=== PATIENT | female | born 1960 | race Caucasian/White ===

== ENCOUNTER 2018-06-03 13:22 | Emergency (ER) | payer OTHER ==
--- NOTE | 2018-06-03 14:02 | ED Physician Documentation ---
PD HPI TRUNK INJURY - Stated complaint Stated Complaint: GLF/RIB PX - Chief complaint Chief Complaint: Trauma Abd - History obtained from History obtained from: Patient, Family - History of Present Illness Location: Left chest Type of injury: Fall Timing - onset: Today Timing - duration: Minutes Timing - details: Abrupt onset, Still present Quality: Pain, Sharp Improved by: Rest, Immobilization Worsened by: Moving, Palpating Associated symtptoms: Feel faint, Syncope. No: Weakness, Numbness, Tingling, Swelling Contributing factors: No: Anticoagulated Where injury occured: Home Similar symptoms before: Diagnosis (syncope related to pain) Recently seen: Not recently seen - Additional information Additional information: Previously well 57-year-old female was in her home today, she was brushing her teeth and she was in her bathroom and she leaned against the commode. The seat on the commode shifted and the patient fell against the bathtub. She struck her left chest wall and has pain specifically on the left chest wall inferiorly and she has heard a click when she breathes periodically. She has had a syncopal episode after the fall and has come to the ED for evaluation. She indicates she has had problem with syncope after injury previously as well. Review of Systems Constitutional: denies: Fever, Chills, Myalgias Eyes: denies: Decreased vision Ears: denies: Ear pain Nose: reports: Congestion Cardiac: reports: Chest pain / pressure. denies: Palpitations, Pedal edema, Calf pain Respiratory: denies: Dyspnea, Cough GI: denies: Abdominal Pain, Abdominal Swelling, Nausea, Vomiting, Constipation, Diarrhea : denies: Dysuria, Frequency PD PAST MEDICAL HISTORY - Present Medications Home Medications: Ambulatory Orders Medication Instructions Recorded Confirmed Hydrocodone/Acetaminophen 1 - 2 each PO Q6H PRN #14 tablet 06/03/18 [Hydrocodon-Acetaminophen 5-325] - Allergies Allergies/Adverse Reactions: Allergies Allergy/AdvReac Type Severity Reaction Status Date / Time No Known Drug Allergies Allergy Verified 06/03/18 13:35 PD ED PE NORMAL - Vitals Vital signs reviewed: Yes (hypotensive ) - General General: Alert and oriented X 3, No acute distress - HEENT HEENT: Atraumatic, PERRL, EOMI - Neck Neck: Supple, no meningeal sign, No bony TTP - Cardiac Cardiac: RRR, No murmur - Respiratory Respiratory: No respiratory distress, Clear bilaterally, Other (There is specific point tenderness to the chest wall inferiorly and laterally. 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, No motor deficit, No sensory deficit, Normal speech Eye Opening: Spontaneous Motor: Obeys Commands Verbal: Oriented GCS Score: 15 - Psych Psych: Normal mood, Normal affect Results - Vitals Vitals: Vital Signs - 24 hr 06/03/18 06/03/18 06/03/18 13:31 13:41 14:09 Temperature 36 C L 36.8 C Heart Rate 63 63 56 L Respiratory 16 16 12 Rate Blood Pressure 77/47 L 82/51 L 91/56 L O2 Saturation 97 95 100 06/03/18 14:43 Temperature Heart Rate 57 L Respiratory 14 Rate Blood Pressure 86/54 L O2 Saturation 99 Oxygen O2 Source Room air - Labs Labs: Laboratory Tests 06/03/18 06/03/18 06/03/18 13:57 13:57 13:57 WBC 12.0 H RBC 4.24 Hgb 13.0 Hct 38.4 MCV 90.4 MCH 30.5 MCHC 33.7 RDW 12.8 Plt Count 219 MPV 8.2 Neut # (Auto) 10.1 H Lymph # (Auto) 1.2 L [place] # (Auto) 0.6 Eos # (Auto) 0.0 Baso # (Auto) 0.1 Absolute Nucleated RBC 0.00 Nucleated RBC % 0.0 Sodium 134 L Potassium 3.8 Chloride 94 L Carbon Dioxide 29 Anion Gap 11.0 BUN 27 H Creatinine 1.0 Estimated GFR (MDRD) 57 L Glucose 141 H Calcium 9.3 Total Bilirubin 0.8 AST 27 ALT 15 Alkaline Phosphatase 58 Troponin I < 0.04 Total Protein 7.6 Albumin 4.2 Globulin 3.4 Albumin/Globulin Ratio 1.2 Lipase 23 - Rads (name of study) ribs and PA chest Radiology: Prelim report reviewed (Impression: Negative chest and rib radiography.), EMP read indepedently, See rad report Procedures - FAST exam (time) 8984 FAST exam: No: Free fluid RUQ, Free fluid LUQ, Free fluid suprapubic, Pericardial effusion PD MEDICAL DECISION MAKING - ED course Complexity details: reviewed results, re-evaluated patient, considered differential, d/w patient, d/w family ED course: 57-year-old female with a fall against a tub and a cracked rib has pain in her left lateral chest and she has a negative FAST exam. She did have hypotension when she arrived to the emergency department and she continues to run pressures under 100. She does state that she usually runs a low blood pressure. She has had a syncopal episode today and she has had this happen to her previously with painful conditions. Departure - Departure Disposition: 01 Home, Self Care Clinical Impression: Chest wall contusion Qualifiers: Encounter type: initial encounter Laterality: left Qualified Code(s): S20.212A - Contusion of left front wall of thorax, initial encounter Condition: Stable Instructions: ED Contusion Vs Minor Fx Rib Follow-Up: [facility] [Provider Group] Prescriptions: Hydrocodone/Acetaminophen [Hydrocodon-Acetaminophen 5-325] 1 - 2 each PO Q6H PRN #14 tablet PRN Reason: pain
[2018-06-03 14:08] LABS: BASOPHILS # (AUTO) 0.1 10^3/uL (0.0-0.1); BASOPHILS % (AUTO) 0.6 %; EOSINOPHILS % (AUTO) 0.3 %; LYMPHOCYTES # (AUTO) 1.2 10^3/uL (1.5-3.5); LYMPHOCYTES % (AUTO) 9.9 %; MEAN CORPUSCULAR HEMOGLOBIN 30.5 pg (27.0-31.0); MEAN CORPUSCULAR HGB CONC 33.7 g/dL (32.0-36.0); MEAN CORPUSCULAR VOLUME 90.4 fL (81.0-99.0); MEAN PLATELET VOLUME 8.2 fL (7.9-10.8); MONOCYTES # (AUTO) 0.6 10^3/uL (0.0-1.0); MONOCYTES % (AUTO) 4.9 %; NEUTROPHILS # (AUTO) 10.1 10^3/uL (1.5-6.6); NEUTROPHILS % (AUTO) 84.3 %; PLT - PLATELET COUNT 219 10^3/uL (130-450); RED BLOOD COUNT 4.24 10^6/uL (4.20-5.40); RED CELL DISTRIBUTION WIDTH 12.8 % (12.0-15.0)
[2018-06-03] MEDS ORDERED: SODIUM CHLORIDE 0.9% 1,000 ML IV ONE (14:13)
[2018-06-03 14:25] LABS: ALBUMIN 4.2 g/dL (3.2-5.5); ALBUMIN/GLOBULIN RATIO 1.2 (1.0-2.2); BILIRUBIN,TOTAL 0.8 mg/dL (0.2-1.0); CALCIUM 9.3 mg/dL (8.5-10.3); TOTAL PROTEIN 7.6 g/dL (6.7-8.2)
[2018-06-03] MEDS ORDERED: KETOROLAC 60 MG/2 ML VIAL IVP STA (14:56)
--- NOTE | 2018-06-03 15:12 | XRAY Report ---
Reason: chest wall contusion pain lower left Procedure Date: 06/03/2018 Accession Number: [id number] / [id number] Procedure: XR - Ribs w/PA Chest LT CPT Code: FULL RESULT: EXAM: LEFT RIB RADIOGRAPHY EXAM DATE: 06/03/2018 02:44 PM. CLINICAL HISTORY: Chest wall contusion pain lower left. COMPARISON: None. TECHNIQUE: 1 view of the chest and 2 views of the ribs. FINDINGS: Bones: Normal. No fracture or bone lesion. Lungs: No focal opacities. No pneumothorax. No pleural effusions. Mediastinum: Heart and mediastinal contours are unremarkable. Other: None. IMPRESSION: Negative chest and rib radiography. RADIA
[2018-06-03 15:36] VITALS: BP 95/62
== END 2018-06-03 15:36 | disposition home or self-care (01) ==
LOC: ED 13:22
DX: S20.212A Contusion of left front wall of thorax, initial encounter (principal); W18.39XA Other fall on same level, initial encounter; Y93.E8 Activity, other personal hygiene; Y92.002 Bathroom of unspecified non-institutional (private) residence as the place of occurrence of the external cause; I95.9 Hypotension, unspecified
CPT/HCPCS: 36415; 80053; 83690; 84484; 85025; 93005; 96361; 96374; 99283; 99284

== ENCOUNTER 2021-06-16 10:11 | Inpatient (IN) | payer OTHER ==
[2021-06-16] MEDS ORDERED: SODIUM CHLORIDE 0.9% 1,000 ML IV STA ×3 (10:40→12:55)
--- NOTE | 2021-06-16 10:50 | ED Physician Documentation ---
PD HPI URI - Stated complaint Stated Complaint: WEAK, LOW BLOOD PRESSURE - Chief complaint Chief Complaint: General - History obtained from History obtained from: Patient - History of Present Illness Timing - onset: How many days ago (7-8) Timing duration: Days (7-8) Timing details: Gradual onset Associated symptoms: Fever, Chills, Nasal congestion, Dry cough, NVD, Other (Patient started with upper respiratory symptoms of nasal congestion cough fatigue and feverish. Cough has been medium. Some shortness of breath. Most n otable is nausea with some vomiting and loose stool and poor intake for the last few days. General weakness now.) Contributing factors: Unimmunized. No: Sick contact, Travel Similar symptoms before: Has not had sx before Recently seen: Not recently seen Review of Systems Constitutional: reports: Fever, Chills, Fatigue Nose: reports: Congestion, Sinus pressure / pain Cardiac: denies: Chest pain / pressure Respiratory: reports: Dyspnea, Cough. denies: Wheezing GI: reports: Nausea, Vomiting. 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 HEENT: None Psych: None Musculoskeletal: None Derm: None - Past Surgical History Past Surgical History: No - Present Medications Home Medications: Ambulatory Orders Medication Instructions Recorded Confirmed No Known Home Medications 06/16/21 06/16/21 - Allergies Allergies/Adverse Reactions: Allergies Allergy/AdvReac Type Severity Reaction Status Date / Time No Known Drug Allergies Allergy Verified 06/16/21 10:29 - Living Situation Living Arrangement: reports: At home - Social History Does the pt smoke?: No Smoking Status: Never smoker Does the pt drink ETOH?: No Does the pt have substance abuse?: No - Family History Family history: reports: Non contributory - Immunizations Immunizations are current?: No - POLST Patient has POLST: No PD ED PE NORMAL - Vitals Vital signs reviewed: Yes (low BP and oxygenation. ) - General General: Alert and oriented X 3, Well developed/nourished, Other (pale colored) - HEENT HEENT: Pharynx benign - Neck Neck: Supple, no meningeal sign, No adenopathy - Cardiac Cardiac: RRR, No murmur - Respiratory Respiratory: No respiratory distress. No: Clear bilaterally (coarse sounds bilaterally. No wheezing. ) - Abdomen Abdomen: Soft, Non tender, Non distended - Back Back: No CVA TTP - Derm Derm: Warm and dry. No: Normal color (pale) - Extremities Extremities: No tenderness to palpate, No edema, No calf tenderness / cord - Neuro Neuro: Alert and oriented X 3, No motor deficit, Normal speech Results - Vitals Vitals: Vital Signs - 24 hr 06/16/21 06/16/21 06/16/21 10:18 10:29 10:59 Temperature 37.7 C Heart Rate 97 81 Respiratory 20 19 Rate Blood Pressure 91/68 97/59 L O2 Saturation 86 L 90 L 97 06/16/21 06/16/21 11:29 12:00 Temperature Heart Rate 77 77 Respiratory 17 20 Rate Blood Pressure 99/57 L 93/53 L O2 Saturation 96 99 Oxygen O2 Source Nasal cannula - Labs Labs: Laboratory Tests 06/16/21 06/16/21 06/16/21 10:45 10:45 10:46 WBC 4.8 RBC 4.58 Hgb 12.5 Hct 38.7 MCV 84.5 MCH 27.3 MCHC 32.3 RDW 15.8 H Plt Count 283 MPV 10.0 Neut # (Auto) 4.0 Lymph # (Auto) 0.7 L [place] # (Auto) 0.1 Eos # (Auto) 0.0 Baso # (Auto) 0.0 Absolute Nucleated RBC 0.00 Nucleated RBC % 0.0 Sodium 135 Potassium 3.1 L Chloride 100 L Carbon Dioxide 23 Anion Gap 12.0 BUN 20 Creatinine 0.8 Estimated GFR (MDRD) 73 L Glucose 134 H Lactic Acid Calcium 8.5 Total Bilirubin 0.6 AST 47 H ALT 16 Alkaline Phosphatase 53 Total Protein 7.8 Albumin 3.3 Globulin 4.5 H Albumin/Globulin Ratio 0.7 L Urine Color Urine Clarity Urine pH Ur Specific [place] Urine Protein Urine Glucose (UA) Urine Ketones Urine Occult Blood Urine Nitrite Urine Bilirubin Urine Urobilinogen Ur Leukocyte Esterase Urine RBC Urine WBC Ur Squamous Epith Cells Amorphous Sediment Urine Bacteria Urine Casts Urine Mucus Urine Culture Comments Nasal Adenovirus (PCR) NOT DETECTED Nasal B. parapertussis DNA (PCR) NOT DETECTED Nasal Coronavir 229E PCR NOT DETECTED Nasal Coronavir HKU1 PCR NOT DETECTED Nasal Coronavir NL63 PCR NOT DETECTED Nasal Coronavir OC43 PCR NOT DETECTED Nasal Enterovir/Rhinovir PCR NOT DETECTED Nasal Influenza B PCR NOT DETECTED Nasal Influenza A PCR NOT DETECTED Nasal Parainfluen 1 PCR NOT DETECTED Nasal Parainfluen 2 PCR NOT DETECTED Nasal Parainfluen 3 PCR NOT DETECTED Nasal Parainfluen 4 PCR NOT DETECTED Nasal RSV (PCR) NOT DETECTED Nasal B.pertussis DNA PCR NOT DETECTED Nasal C.pneumoniae (PCR) NOT DETECTED [place] Human Metapneumo PCR NOT DETECTED Nasal M.pneumoniae (PCR) NOT DETECTED Nasal SARS-CoV-2 (PCR) DETECTED A 06/16/21 06/16/21 10:53 11:21 WBC RBC Hgb Hct MCV MCH MCHC RDW Plt Count MPV Neut # (Auto) Lymph # (Auto) [place] # (Auto) Eos # (Auto) Baso # (Auto) Absolute Nucleated RBC Nucleated RBC % Sodium Potassium Chloride Carbon Dioxide Anion Gap BUN Creatinine Estimated GFR (MDRD) Glucose Lactic Acid 1.5 Calcium Total Bilirubin AST ALT Alkaline Phosphatase Total Protein Albumin Globulin Albumin/Globulin Ratio Urine Color DARK YELLOW Urine Clarity CLEAR Urine pH 6.0 Ur Specific [place] 1.025 Urine Protein 30 H Urine Glucose (UA) NEGATIVE Urine Ketones NEGATIVE Urine Occult Blood TRACE-INTA Urine Nitrite NEGATIVE Urine Bilirubin NEGATIVE Urine Urobilinogen 0.2 (NORMAL) Ur Leukocyte Esterase NEGATIVE Urine RBC 0-5 Urine WBC 0-3 Ur Squamous Epith Cells RARE Squamous Amorphous Sediment Few Urine Bacteria Few Urine Casts 0-2 Hyaline Casts Urine Mucus Few Strands Urine Culture Comments NOT INDICATED Nasal Adenovirus (PCR) Nasal B. parapertussis DNA (PCR) Nasal Coronavir 229E PCR Nasal Coronavir HKU1 PCR Nasal Coronavir NL63 PCR Nasal Coronavir OC43 PCR Nasal Enterovir/Rhinovir PCR Nasal Influenza B PCR Nasal Influenza A PCR Nasal Parainfluen 1 PCR Nasal Parainfluen 2 PCR Nasal Parainfluen 3 PCR Nasal Parainfluen 4 PCR Nasal RSV (PCR) Nasal B.pertussis DNA PCR Nasal C.pneumoniae (PCR) [place] Human Metapneumo PCR Nasal M.pneumoniae (PCR) Nasal SARS-CoV-2 (PCR) - Rads (name of study) chest xray Radiology: Prelim report reviewed (diffuse interstitial pneumonia c/w COVID pneumonia unless proven otherwise. ), See rad report PD MEDICAL DECISION MAKING - ED course Complexity details: reviewed old records (BP relatively low on prior visits. ), reviewed results, considered differential, d/w patient Departure - Departure Disposition: 66 [facility] DC/Xfer Clinical Impression: General weakness, Dehydration, Hypoxia, Pneumonia due to COVID-19 virus Nausea and vomiting Qualifiers: Vomiting type: unspecified Vomiting Intractability: non-intractable Qualified Code(s): R11.2 - Nausea with vomiting, unspecified Condition: Stable Record reviewed to determine appropriate education?: Yes
[2021-06-16 11:01] LABS: BASOPHILS % (AUTO) 0.2 %; HCT - HEMATOCRIT 38.7 % (37.0-47.0); HGB - HEMOGLOBIN 12.5 g/dL (12.0-16.0); LYMPHOCYTES # (AUTO) 0.7 10^3/uL (1.5-3.5); LYMPHOCYTES % (AUTO) 15.3 %; MEAN CORPUSCULAR HEMOGLOBIN 27.3 pg (27.0-31.0); MEAN CORPUSCULAR HGB CONC 32.3 g/dL (32.0-36.0); MEAN CORPUSCULAR VOLUME 84.5 fL (81.0-99.0); MONOCYTES # (AUTO) 0.1 10^3/uL (0.0-1.0); MONOCYTES % (AUTO) 2.5 %; NEUTROPHILS % (AUTO) 81.6 %; PLT - PLATELET COUNT 283 10^3/uL (130-450); RED BLOOD COUNT 4.58 10^6/uL (4.20-5.40); RED CELL DISTRIBUTION WIDTH 15.8 % (12.0-15.0); WHITE BLOOD COUNT 4.8 x10^3/uL (4.8-10.8)
[2021-06-16 11:14] LABS: ALBUMIN 3.3 g/dL (3.2-5.5); ALBUMIN/GLOBULIN RATIO 0.7 (1.0-2.2); BILIRUBIN,TOTAL 0.6 mg/dL (0.2-1.0); CALCIUM 8.5 mg/dL (8.5-10.3); CREATININE 0.8 mg/dL (0.4-1.0); POTASSIUM 3.1 mmol/L (3.5-5.0); TOTAL PROTEIN 7.8 g/dL (6.7-8.2)
[2021-06-16 11:27] LABS: BILIRUBIN,URINE NEGATIVE (NEGATIVE); GLUCOSE, URINE (UA) NEGATIVE (NEGATIVE); KETONES,URINE (UA) NEGATIVE (NEGATIVE); LEUKOCYTE ESTERASE, URINE NEGATIVE (NEGATIVE); NITRITE,URINE NEGATIVE (NEGATIVE); OCCULT BLOOD,URINE TRACE-INTA (NEGATIVE); PROTEIN,URINE 30 mg/dL (NEGATIVE); UROBILINOGEN,URINE 0.2 (NORMAL) E.U./dL (NORMAL)
[2021-06-16 11:30] LABS: CLARITY,URINE CLEAR (CLEAR)
[2021-06-16 11:34] LABS: AMORPHOUS SEDIMENT,UR Few /LPF; BACTERIA,URINE Few /HPF (None Seen); CASTS, URINE 0-2 Hyaline Casts /LPF; MUCUS,URINE Few Strands; RBC,URINE 0-5 /HPF (0-5); SQUAMOUS EPITHELIAL CELL,UR RARE Squamous (<= Few); WBC,URINE 0-3 /HPF (0-5)
--- NOTE | 2021-06-16 11:42 | XRAY Report ---
PROCEDURE: Chest 1 View X-Ray INDICATIONS: cough TECHNIQUE: One view of the chest was acquired. COMPARISON: 06/03/2018 FINDINGS: Surgical changes and devices: None. Lungs and pleura: No pleural effusions or pneumothorax. Patchy bilateral interstitial type infiltra ivonne are seen. Mediastinum: Mediastinal contours appear normal. Heart size is normal. Bones and chest wall: No suspicious bony lesions. Overlying soft tissues appear unremarkable. IMPRESSION: COVID pneumonia until proven otherwise. Reviewed by: Ernie Goel MD on 06/16/2021 10:41 AM [facility] Approved by: Ernie Goel MD on 06/16/2021 10:41 AM [facility] Station ID: [id number]
[2021-06-16 12:27] LABS: B. PARAPERTUSSIS- RESP PCR PAN NOT DETECTED; B. PERTUSSIS- RESP PCR PANEL NOT DETECTED; C. PNEUMONIAE- RESP PCR PANEL NOT DETECTED; CORONAVIRUS 229E-RESP PCR NOT DETECTED; CORONAVIRUS HKU1-RESP PCR NOT DETECTED; CORONAVIRUS NL63-RESP PCR NOT DETECTED; CORONAVIRUS OC43-RESP PCR NOT DETECTED; HUMAN METAPNEUMOVIRUS NOT DETECTED; INFLUENZA A- RESP PCR PANEL NOT DETECTED; INFLUENZA B - RESP PCR PANEL NOT DETECTED; M. PNEUMONIAE- RESP PCR PANEL NOT DETECTED; PARAINFLUENZA VIRUS 1 NOT DETECTED; PARAINFLUENZA VIRUS 2 NOT DETECTED; PARAINFLUENZA VIRUS 3 NOT DETECTED; PARAINFLUENZA VIRUS 4 NOT DETECTED; RHINOVIRUS/ENTEROVIRUS NOT DETECTED; RSV- RESP PCR PANEL NOT DETECTED
[2021-06-16 12:28] LABS: SARS-CoV-2 -RESP PCR PANEL DETECTED
[2021-06-16] MEDS ORDERED: POTASSIUM CHLORIDE 20 MEQ TABLET PO STA (12:58)
[2021-06-16] MEDS ORDERED: SODIUM CHLORIDE FLUSH 0.9% 10 ML SYRINGE IVP PRN (12:58)
--- NOTE | 2021-06-16 13:02 | HISTORY & PHYSICAL EXAMINATION ---
Chief Complaint - Chief Complaint Chief Complaint: Sinus-like symptoms History of Present Illness - Admitted From Admitted From:: Home - History Obtained From Records Reviewed: Yes History obtained from: Patient, ER Physician, EMR - History of Present Illness HPI Comment/Other: This is a 60-year-old female with no significant past medical history who presents today complaining of generalized malaise. She states she has had nasal congestion and a cough as well as chills for about the past week. Over the past few days this has progressed and she has felt more nauseous and has had vomiting and diarrhea. She has had a poor appetite and just feels generally weak overall. No focal deficits. No abdominal pain. She is not vaccinated against COVID-19. She reports no dysuria, urgency, hematuria. She reports being quite healthy and takes no medications at home. She is a non-smoker and does not drink alcohol. She did report feeling dizzy nightly this morning but this has since resolved. She states her blood pressure is normally on the lower side. In the emergency department, she was noted be hypoxic saturating in the mid 80s on room air. This improved to the high 90s with 2 L of oxygen via nasal cannula. Imaging suggested pneumonia. She was initially hypotensive with systolics in the 90s but this is stable. Given this, medicine was consulted for admission. We discussed goals of care and she would like to be a full code. 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 Her father this year from renal failure. He had a history of renal cell carcinoma and underwent a nephrectomy. Living arrangement: At home Living Situation: With family Social History Notes: She lives at home with her family. She does not smoke and does not drink alcohol. - POLST Patient has POLST: No Meds/Allgy - Home Medications Home Medications: Ambulatory Orders Medication Instructions Recorded Confirmed No Known Home Medications 06/16/21 06/16/21 - Allergies Allergies/Adverse Reactions: Allergies Allergy/AdvReac Type Severity Reaction Status Date / Time No Known Drug Allergies Allergy Verified 06/16/21 10:29 Review of Systems - Constitutional Constitutional: reports: Fatigue, Fever, Chills - Ears, Nose & Throat Ears, Nose & Throat: reports: Nasal congestion. denies: Sore throat - Cardiovascular Cariovascular: reports: Exertional dyspnea - Respiratory Respiratory: reports: Cough, SOB at rest, SOB with exertion - Gastrointestinal Gastrointestinal: reports: Diarrhea, Nausea, Vomiting, Poor appetite - Genitourinary Genitourinary: denies: Dysuria, Frequency, Urgency, Hematuria - Integumentary Integumentary: denies: Rash - Neurological Neurological: reports: General weakness, Headache, Dizziness. denies: Focal weakness - All Other Systems All Other Systems: reports: Reviewed and negative Prior Level of Functionality: She is independent with her ADLs. Exam - Vital Signs Reviewed Vital Signs: Yes Vital Signs: Vital Signs x48h Temp Pulse Resp BP Pulse Ox 06/16/21 12:00 77 20 93/53 L 99 06/16/21 11:29 77 17 99/57 L 96 06/16/21 10:59 81 19 97/59 L 97 06/16/21 10:29 90 L 06/16/21 10:18 37.7 C 97 20 91/68 86 L - Physical Exam General Appearance: positive: No acute distress, Alert Eyes Bilateral: positive: Conjunctivae nml ENT: positive: ENT inspection nml, Other (Nasal cannula in place.) Neck: positive: Nml inspection Respiratory: positive: No respiratory distress, Rhonchi (Faint rhonchi bilaterally). negative: Wheezes, Rales Cardiovascular: positive: Regular rate & rhythm. negative: Tachycardia, Systolic murmur Abdomen: positive: Non-tender, No distention. negative: Tenderness Skin: positive: Warm, Dry Extremities: positive: No pedal edema Neurologic/Psychiatric: positive: CN's nml (2-12). negative: Disoriented to person, Disoriented to place, Disoriented to time Conclusion/Plan - Problem List (1) Pneumonia due to COVID-19 virus Conclusion/Plan: She has hypoxia requiring 2 L of oxygen and her chest x-ray suggest pneumonia. Fortunately, she does appear comfortable and is not tachypnic. She will be admitted for IV remdesivir and Decadron. Continue supplemental oxygen. No indication for antibiotics at this time. (2) Hypoxia Conclusion/Plan: This is secondary to COVID-19 pneumonia. Continue supplemental oxygen. Plan as mentioned above. - Lab Results Lab results reviewed: Yes Fish Bones: 06/16/21 10:45 06/16/21 10:45 - Diagnostic Imaging Results Diagnostic Imaging Results: positive: Final report reviewed Core Measures - Anticipated LOS I expect patient to be DC'd or transferred within 96 hours.: Yes - Issues Hospital Issues and Management Plan: 60-year-old female presents with nausea vomiting found to have COVID-19 infection and is hypoxic. Will admit for IV steroids, remdesivir and supplemental oxygen. - DVT/VTE - Prophylaxis VTE/DVT Device ordered at admit?: Yes VTE/DVT Prophylaxis med ordered at admit?: Yes
[2021-06-16] MEDS: DEXAMETHASONE 4 MG/ML VIAL IVP SCH (15:36)
[2021-06-16] MEDS ORDERED: REMDESIVIR 100MG VIAL 200 MG in SODIUM CHLORIDE 0.9% 250 ML IV ONE (16:00)
[2021-06-16] MEDS: LACTATED RINGERS 1,000 ML IV SCH (16:25)
[2021-06-16] MEDS: INSULIN ASPART 300 UNIT/3 ML PEN SUBQ SCH ×2 (17:44→21:26)
[2021-06-16] MEDS: SODIUM CHLORIDE FLUSH 0.9% 10 ML SYRINGE IVP SCH (17:45)
[2021-06-16] MEDS: BENZONATATE 100 MG CAPSULE PO PRN (20:03)
[2021-06-16] MEDS: guaiFENesin 600 MG TABLET PO SCH (21:26)
[2021-06-17] MEDS: SODIUM CHLORIDE FLUSH 0.9% 10 ML SYRINGE IVP SCH ×3 (01:09→18:27)
[2021-06-17] MEDS: LACTATED RINGERS 1,000 ML IV SCH (01:09)
[2021-06-17] MEDS: ONDANSETRON ODT 4 MG TABLET TL PRN (03:10)
[2021-06-17 05:56] LABS: BASOPHILS % (AUTO) 0.2 %; HCT - HEMATOCRIT 32.7 % (37.0-47.0); HGB - HEMOGLOBIN 10.4 g/dL (12.0-16.0); LYMPHOCYTES % (AUTO) 18.6 %; MEAN CORPUSCULAR HEMOGLOBIN 27.1 pg (27.0-31.0); MEAN CORPUSCULAR HGB CONC 31.8 g/dL (32.0-36.0); MEAN CORPUSCULAR VOLUME 85.2 fL (81.0-99.0); MEAN PLATELET VOLUME 9.6 fL (7.9-10.8); MONOCYTES # (AUTO) 0.3 10^3/uL (0.0-1.0); MONOCYTES % (AUTO) 5.1 %; NEUTROPHILS # (AUTO) 3.9 10^3/uL (1.5-6.6); NEUTROPHILS % (AUTO) 75.9 %; PLT - PLATELET COUNT 247 10^3/uL (130-450); RED BLOOD COUNT 3.84 10^6/uL (4.20-5.40); RED CELL DISTRIBUTION WIDTH 15.8 % (12.0-15.0); WHITE BLOOD COUNT 5.1 x10^3/uL (4.8-10.8)
[2021-06-17 06:10] LABS: CALCIUM 8.1 mg/dL (8.5-10.3); CREATININE 0.6 mg/dL (0.4-1.0); MAGNESIUM 1.9 mg/dL (1.7-2.8); POTASSIUM 3.6 mmol/L (3.5-5.0)
[2021-06-17] MEDS ORDERED: POTASSIUM CHLORIDE 20 MEQ TABLET PO ONE (07:43)
--- NOTE | 2021-06-17 07:43 | PROVIDER PROGRESS NOTE ---
Subjective - Prog Note Date Prog Note Date: 06/17/21 - Subjective Subjective: She still feels short of breath but feels like she is improved compared to yesterday. She has had a good appetite. She denies any pain. Current Medications - Current Medications Current Medications: Active Medications Acetaminophen (Acetaminophen 325 Mg Tablet) 650 mg PO Q4HR PRN PRN Reason: Pain 1 to 4 Benzonatate (Benzonatate 100 Mg Capsule) 100 mg PO TID PRN PRN Reason: Cough Last Admin: 06/16/21 20:03 Dose: 100 mg Documented by: Dexamethasone (Dexamethasone 4 Mg/Ml Vial) 6 mg IVP DAILY [facility] Last Admin: 06/16/21 15:36 Dose: 6 mg Documented by: Enoxaparin Sodium (Enoxaparin 40 Mg/0.4 Ml Syringe) 40 mg SUBQ DAILY [facility] Guaifenesin (Guaifenesin 600 Mg Tablet) 600 mg PO BID [facility] Last Admin: 06/16/21 21:26 Dose: 600 mg Documented by: Remdesivir 100 mg/ Sodium (Chloride) 100 mls @ 200 mls/hr IV DAILY [facility] Stop: 06/20/21 09:29 Lactated Ringer's (Lr) 1,000 mls @ 100 mls/hr IV .Q10H [facility] Stop: 06/17/21 11:59 Last Admin: 06/17/21 01:09 Dose: 100 mls/hr Documented by: Insulin Aspart (Insulin Aspart 300 Unit/3 Ml Pen) 1 - 9 unit SUBQ 0800,1200,1700,2100 [facility]; Protocol Last Admin: 06/16/21 21:26 Dose: Not Given Documented by: Ondansetron HCl (Ondansetron Odt 4 Mg Tablet) 4 mg TL Q6HR PRN PRN Reason: Nausea / Vomiting Last Admin: 06/17/21 03:10 Dose: 4 mg Documented by: Sodium Chloride (Sodium Chloride Flush 0.9% 10 Ml Syringe) 10 ml IVP PRN PRN PRN Reason: NEEDED PER PROVIDER ORDERS Sodium Chloride (Sodium Chloride Flush 0.9% 10 Ml Syringe) 10 ml IVP 0100, 0900,1700 [facility] Last Admin: 06/17/21 01:09 Dose: 10 ml Documented by: No Known Home Medications 06/16/21 Objective - Vital Signs/Intake & Output Reviewed Vital Signs: Yes Vital Signs: Vital Signs x48h Temp Pulse Resp BP Pulse Ox 06/17/21 04:03 37.1 C 62 22 104/66 95 06/17/21 00:01 37.1 C 65 22 98/53 L 91 L Intake & Output: Intake & Output 06/14/21 06/15/21 06/16/21 06/17/21 23:59 23:59 23:59 23:59 Intake Total 3250 1073.333 Output Total 850 1000 Balance 2400 73.333 - Objective General Appearance: positive: No acute distress, Alert Eyes Bilateral: positive: Normal inspection, Conjunctivae nml ENT: positive: ENT inspection nml, Other (Nasal cannula in place.) Neck: positive: Nml inspection Respiratory: positive: No respiratory distress, Rhonchi (Faint rhonci.). negative: Wheezes, Rales Cardiovascular: positive: Regular rate & rhythm, No murmur. negative: Tachycardia Abdomen: positive: Non-tender, No distention. negative: Tenderness Skin: positive: Warm, Dry Extremities: positive: No pedal edema Neurologic/Psychiatric: positive: Motor nml. negative: Disoriented to person, Disoriented to place, Disoriented to time - Lab Results Fish Bones: 06/17/21 05:47 06/17/21 05:47 Other Labs: Lab Results x24hrs 06/17/21 06/17/21 06/16/21 Range/Units 05:47 05:47 20:42 WBC 5.1 (4.8-10.8) x10^3/uL RBC 3.84 L (4.20-5.40) 10^6/uL Hgb 10.4 L (12.0-16.0) g/dL Hct 32.7 L (37.0-47.0) % MCV 85.2 (81.0-99.0) fL MCH 27.1 (27.0-31.0) pg MCHC 31.8 L (32.0-36.0) g/dL RDW 15.8 H (12.0-15.0) % Plt Count 247 (130-450) 10^3/uL MPV 9.6 (7.9-10.8) fL Neut # (Auto) 3.9 (1.5-6.6) 10^3/uL Lymph # (Auto) 1.0 L (1.5-3.5) 10^3/uL [place] # (Auto) 0.3 (0.0-1.0) 10^3/uL Eos # (Auto) 0.0 (0.0-0.7) 10^3/uL Baso # (Auto) 0.0 (0.0-0.1) 10^3/uL Absolute Nucleated RBC 0.00 x10^3/uL Nucleated RBC % 0.0 /100WBC Sodium 135 (135-145) mmol/L Potassium 3.6 (3.5-5.0) mmol/L Chloride 104 (101-111) mmol/L Carbon Dioxide 22 (21-32) mmol/L Anion Gap 9.0 (6-13) BUN 16 (6-20) mg/dL Creatinine 0.6 (0.4-1.0) mg/dL Estimated GFR (MDRD) 102 (>89) Glucose 123 H (70-100) mg/dL POC Whole Bld Glucose 135 H (70 - 100) mg/dL Lactic Acid (0.5-2.2) mmol/L Calcium 8.1 L (8.5-10.3) mg/dL Magnesium 1.9 (1.7-2.8) mg/dL Total Bilirubin (0.2-1.0) mg/dL AST (10-42) IU/L ALT (10-60) IU/L Alkaline Phosphatase (42-121) IU/L Total Protein (6.7-8.2) g/dL Albumin (3.2-5.5) g/dL Globulin (2.1-4.2) g/dL Albumin/Globulin Ratio (1.0-2.2) Urine Color Urine Clarity (CLEAR) Urine pH (5.0-7.5) PH Ur Specific [place] (1.002-1.030) Urine Protein (NEGATIVE) mg/dL Urine Glucose (UA) (NEGATIVE) mg/dL Urine Ketones (NEGATIVE) mg/dL Urine Occult Blood (NEGATIVE) Urine Nitrite (NEGATIVE) Urine Bilirubin (NEGATIVE) Urine Urobilinogen (NORMAL) E.U./dL Ur Leukocyte Esterase (NEGATIVE) Urine RBC (0-5) /HPF Urine WBC (0-5) /HPF Ur Squamous Epith Cells (<= Few) Amorphous Sediment /LPF Urine Bacteria (None Seen) /HPF Urine Casts /LPF Urine Mucus Urine Culture Comments Nasal Adenovirus (PCR) Nasal B. parapertussis DNA (PCR) Nasal Coronavir 229E PCR Nasal Coronavir HKU1 PCR Nasal Coronavir NL63 PCR Nasal Coronavir OC43 PCR Nasal Enterovir/Rhinovir PCR Nasal Influenza B PCR Nasal Influenza A PCR Nasal Parainfluen 1 PCR Nasal Parainfluen 2 PCR Nasal Parainfluen 3 PCR Nasal Parainfluen 4 PCR Nasal RSV (PCR) Nasal Screen MRSA (PCR) (NEGATIVE) Nasal B.pertussis DNA PCR Nasal C.pneumoniae (PCR) [place] Human Metapneumo PCR Nasal M.pneumoniae (PCR) Nasal SARS-CoV-2 (PCR) 06/16/21 06/16/21 06/16/21 Range/Units 17:13 15:00 11:21 WBC (4.8-10.8) x10^3/uL RBC (4.20-5.40) 10^6/uL Hgb (12.0-16.0) g/dL Hct (37.0-47.0) % MCV (81.0-99.0) fL MCH (27.0-31.0) pg MCHC (32.0-36.0) g/dL RDW (12.0-15.0) % Plt Count (130-450) 10^3/uL MPV (7.9-10.8) fL Neut # (Auto) (1.5-6.6) 10^3/uL Lymph # (Auto) (1.5-3.5) 10^3/uL [place] # (Auto) (0.0-1.0) 10^3/uL Eos # (Auto) (0.0-0.7) 10^3/uL Baso # (Auto) (0.0-0.1) 10^3/uL Absolute Nucleated RBC x10^3/uL Nucleated RBC % /100WBC Sodium (135-145) mmol/L Potassium (3.5-5.0) mmol/L Chloride (101-111) mmol/L Carbon Dioxide (21-32) mmol/L Anion Gap (6-13) BUN (6-20) mg/dL Creatinine (0.4-1.0) mg/dL Estimated GFR (MDRD) (>89) Glucose (70-100) mg/dL POC Whole Bld Glucose 102 H (70 - 100) mg/dL Lactic Acid (0.5-2.2) mmol/L Calcium (8.5-10.3) mg/dL Magnesium (1.7-2.8) mg/dL Total Bilirubin (0.2-1.0) mg/dL AST (10-42) IU/L ALT (10-60) IU/L Alkaline Phosphatase (42-121) IU/L Total Protein (6.7-8.2) g/dL Albumin (3.2-5.5) g/dL Globulin (2.1-4.2) g/dL Albumin/Globulin Ratio (1.0-2.2) Urine Color DARK YELLOW Urine Clarity CLEAR (CLEAR) Urine pH 6.0 (5.0-7.5) PH Ur Specific [place] 1.025 (1.002-1.030) Urine Protein 30 H (NEGATIVE) mg/dL Urine Glucose (UA) NEGATIVE (NEGATIVE) mg/dL Urine Ketones NEGATIVE (NEGATIVE) mg/dL Urine Occult Blood TRACE-INTA (NEGATIVE) Urine Nitrite NEGATIVE (NEGATIVE) Urine Bilirubin NEGATIVE (NEGATIVE) Urine Urobilinogen 0.2 (NORMAL) (NORMAL) E.U./dL Ur Leukocyte Esterase NEGATIVE (NEGATIVE) Urine RBC 0-5 (0-5) /HPF Urine WBC 0-3 (0-5) /HPF Ur Squamous Epith Cells RARE Squamous (<= Few) Amorphous Sediment Few /LPF Urine Bacteria Few (None Seen) /HPF Urine Casts 0-2 Hyaline Casts /LPF Urine Mucus Few Strands Urine Culture Comments NOT INDICATED Nasal Adenovirus (PCR) Nasal B. parapertussis DNA (PCR) Nasal Coronavir 229E PCR Nasal Coronavir HKU1 PCR Nasal Coronavir NL63 PCR Nasal Coronavir OC43 PCR Nasal Enterovir/Rhinovir PCR Nasal Influenza B PCR Nasal Influenza A PCR Nasal Parainfluen 1 PCR Nasal Parainfluen 2 PCR Nasal Parainfluen 3 PCR Nasal Parainfluen 4 PCR Nasal RSV (PCR) Nasal Screen MRSA (PCR) NEGATIVE (NEGATIVE) Nasal B.pertussis DNA PCR Nasal C.pneumoniae (PCR) [place] Human Metapneumo PCR Nasal M.pneumoniae (PCR) Nasal SARS-CoV-2 (PCR) 06/16/21 06/16/21 06/16/21 Range/Units 10:53 10:46 10:45 WBC (4.8-10.8) x10^3/uL RBC (4.20-5.40) 10^6/uL Hgb (12.0-16.0) g/dL Hct (37.0-47.0) % MCV (81.0-99.0) fL MCH (27.0-31.0) pg MCHC (32.0-36.0) g/dL RDW (12.0-15.0) % Plt Count (130-450) 10^3/uL MPV (7.9-10.8) fL Neut # (Auto) (1.5-6.6) 10^3/uL Lymph # (Auto) (1.5-3.5) 10^3/uL [place] # (Auto) (0.0-1.0) 10^3/uL Eos # (Auto) (0.0-0.7) 10^3/uL Baso # (Auto) (0.0-0.1) 10^3/uL Absolute Nucleated RBC x10^3/uL Nucleated RBC % /100WBC Sodium 135 (135-145) mmol/L Potassium 3.1 L (3.5-5.0) mmol/L Chloride 100 L (101-111) mmol/L Carbon Dioxide 23 (21-32) mmol/L Anion Gap 12.0 (6-13) BUN 20 (6-20) mg/dL Creatinine 0.8 (0.4-1.0) mg/dL Estimated GFR (MDRD) 73 L (>89) Glucose 134 H (70-100) mg/dL POC Whole Bld Glucose (70 - 100) mg/dL Lactic Acid 1.5 (0.5-2.2) mmol/L Calcium 8.5 (8.5-10.3) mg/dL Magnesium (1.7-2.8) mg/dL Total Bilirubin 0.6 (0.2-1.0) mg/dL AST 47 H (10-42) IU/L ALT 16 (10-60) IU/L Alkaline Phosphatase 53 (42-121) IU/L Total Protein 7.8 (6.7-8.2) g/dL Albumin 3.3 (3.2-5.5) g/dL Globulin 4.5 H (2.1-4.2) g/dL Albumin/Globulin Ratio 0.7 L (1.0-2.2) Urine Color Urine Clarity (CLEAR) Urine pH (5.0-7.5) PH Ur Specific [place] (1.002-1.030) Urine Protein (NEGATIVE) mg/dL Urine Glucose (UA) (NEGATIVE) mg/dL Urine Ketones (NEGATIVE) mg/dL Urine Occult Blood (NEGATIVE) Urine Nitrite (NEGATIVE) Urine Bilirubin (NEGATIVE) Urine Urobilinogen (NORMAL) E.U./dL Ur Leukocyte Esterase (NEGATIVE) Urine RBC (0-5) /HPF Urine WBC (0-5) /HPF Ur Squamous Epith Cells (<= Few) Amorphous Sediment /LPF Urine Bacteria (None Seen) /HPF Urine Casts /LPF Urine Mucus Urine Culture Comments Nasal Adenovirus (PCR) NOT DETECTED Nasal B. parapertussis DNA (PCR) NOT DETECTED Nasal Coronavir 229E PCR NOT DETECTED Nasal Coronavir HKU1 PCR NOT DETECTED Nasal Coronavir NL63 PCR NOT DETECTED Nasal Coronavir OC43 PCR NOT DETECTED Nasal Enterovir/Rhinovir PCR NOT DETECTED Nasal Influenza B PCR NOT DETECTED Nasal Influenza A PCR NOT DETECTED Nasal Parainfluen 1 PCR NOT DETECTED Nasal Parainfluen 2 PCR NOT DETECTED Nasal Parainfluen 3 PCR NOT DETECTED Nasal Parainfluen 4 PCR NOT DETECTED Nasal RSV (PCR) NOT DETECTED Nasal Screen MRSA (PCR) (NEGATIVE) Nasal B.pertussis DNA PCR NOT DETECTED Nasal C.pneumoniae (PCR) NOT DETECTED [place] Human Metapneumo PCR NOT DETECTED Nasal M.pneumoniae (PCR) NOT DETECTED Nasal SARS-CoV-2 (PCR) DETECTED A 06/16/21 Range/Units 10:45 WBC 4.8 (4.8-10.8) x10^3/uL RBC 4.58 (4.20-5.40) 10^6/uL Hgb 12.5 (12.0-16.0) g/dL Hct 38.7 (37.0-47.0) % MCV 84.5 (81.0-99.0) fL MCH 27.3 (27.0-31.0) pg MCHC 32.3 (32.0-36.0) g/dL RDW 15.8 H (12.0-15.0) % Plt Count 283 (130-450) 10^3/uL MPV 10.0 (7.9-10.8) fL Neut # (Auto) 4.0 (1.5-6.6) 10^3/uL Lymph # (Auto) 0.7 L (1.5-3.5) 10^3/uL [place] # (Auto) 0.1 (0.0-1.0) 10^3/uL Eos # (Auto) 0.0 (0.0-0.7) 10^3/uL Baso # (Auto) 0.0 (0.0-0.1) 10^3/uL Absolute Nucleated RBC 0.00 x10^3/uL Nucleated RBC % 0.0 /100WBC Sodium (135-145) mmol/L Potassium (3.5-5.0) mmol/L Chloride (101-111) mmol/L Carbon Dioxide (21-32) mmol/L Anion Gap (6-13) BUN (6-20) mg/dL Creatinine (0.4-1.0) mg/dL Estimated GFR (MDRD) (>89) Glucose (70-100) mg/dL POC Whole Bld Glucose (70 - 100) mg/dL Lactic Acid (0.5-2.2) mmol/L Calcium (8.5-10.3) mg/dL Magnesium (1.7-2.8) mg/dL Total Bilirubin (0.2-1.0) mg/dL AST (10-42) IU/L ALT (10-60) IU/L Alkaline Phosphatase (42-121) IU/L Total Protein (6.7-8.2) g/dL Albumin (3.2-5.5) g/dL Globulin (2.1-4.2) g/dL Albumin/Globulin Ratio (1.0-2.2) Urine Color Urine Clarity (CLEAR) Urine pH (5.0-7.5) PH Ur Specific [place] (1.002-1.030) Urine Protein (NEGATIVE) mg/dL Urine Glucose (UA) (NEGATIVE) mg/dL Urine Ketones (NEGATIVE) mg/dL Urine Occult Blood (NEGATIVE) Urine Nitrite (NEGATIVE) Urine Bilirubin (NEGATIVE) Urine Urobilinogen (NORMAL) E.U./dL Ur Leukocyte Esterase (NEGATIVE) Urine RBC (0-5) /HPF Urine WBC (0-5) /HPF Ur Squamous Epith Cells (<= Few) Amorphous Sediment /LPF Urine Bacteria (None Seen) /HPF Urine Casts /LPF Urine Mucus Urine Culture Comments Nasal Adenovirus (PCR) Nasal B. parapertussis DNA (PCR) Nasal Coronavir 229E PCR Nasal Coronavir HKU1 PCR Nasal Coronavir NL63 PCR Nasal Coronavir OC43 PCR Nasal Enterovir/Rhinovir PCR Nasal Influenza B PCR Nasal Influenza A PCR Nasal Parainfluen 1 PCR Nasal Parainfluen 2 PCR Nasal Parainfluen 3 PCR Nasal Parainfluen 4 PCR Nasal RSV (PCR) Nasal Screen MRSA (PCR) (NEGATIVE) Nasal B.pertussis DNA PCR Nasal C.pneumoniae (PCR) [place] Human Metapneumo PCR Nasal M.pneumoniae (PCR) Nasal SARS-CoV-2 (PCR) ABX Reporting Has patient been on IV antibiotics over the past 48 hours?: No Assessment/Plan - Problem List (1) Acute respiratory failure with hypoxia Impression: This is worse compared to yesterday. She is now on 4 L of oxygen via nasal cannula. This is secondary to COVID-19 pneumonia. We will continue her on remdesivir and Decadron with today being day 2. Given the lack of white count and fever, we will hold off on antibiotics. Continue supplemental oxygen. Lovenox for DVT prophylaxis. (2) Pneumonia due to COVID-19 virus Impression: This is a cause of respiratory failure. Plan as mentioned above.
[2021-06-17] MEDS: REMDESIVIR 100MG VIAL 100 MG in SODIUM CHLORIDE 0.9% 100ML 100 ML IV SCH (09:00)
[2021-06-17] MEDS: ENOXAPARIN 40 MG/0.4 ML SYRINGE SUBQ SCH (09:00)
[2021-06-17] MEDS: BENZONATATE 100 MG CAPSULE PO PRN (09:01)
[2021-06-17] MEDS: INSULIN ASPART 300 UNIT/3 ML PEN SUBQ SCH ×4 (09:01→21:06)
[2021-06-17] MEDS: DEXAMETHASONE 4 MG/ML VIAL IVP SCH (09:01)
[2021-06-17] MEDS: guaiFENesin 600 MG TABLET PO SCH ×2 (09:01→20:57)
--- NOTE | 2021-06-17 09:55 | PHARMACY PROGRESS NOTE ---
- Best Possible Medication History Admit Date and Time: 06/16/21 1257 Processed by: Nursing Medication History completed: Yes Patient Interview: Completed As the person ultimately responsible for medication therapy, providers are able to order a medication from an existing home medication list in [facility] via the "Reconcile Routine" prior to Confirmation of that medication by it application support analyst. Such practice is discouraged except when the physician, in their clinical judg ment, deems that a medical need exists for a medication without regard to previous use.
[2021-06-18 05:31] LABS: BASOPHILS % (AUTO) 0.1 %; HCT - HEMATOCRIT 34.1 % (37.0-47.0); HGB - HEMOGLOBIN 11.2 g/dL (12.0-16.0); LYMPHOCYTES # (AUTO) 1.3 10^3/uL (1.5-3.5); LYMPHOCYTES % (AUTO) 14.4 %; MEAN CORPUSCULAR HEMOGLOBIN 27.2 pg (27.0-31.0); MEAN CORPUSCULAR HGB CONC 32.8 g/dL (32.0-36.0); MEAN CORPUSCULAR VOLUME 82.8 fL (81.0-99.0); MEAN PLATELET VOLUME 9.6 fL (7.9-10.8); MONOCYTES # (AUTO) 0.3 10^3/uL (0.0-1.0); MONOCYTES % (AUTO) 3.4 %; NEUTROPHILS # (AUTO) 7.4 10^3/uL (1.5-6.6); NEUTROPHILS % (AUTO) 81.5 %; PLT - PLATELET COUNT 307 10^3/uL (130-450); RED BLOOD COUNT 4.12 10^6/uL (4.20-5.40); RED CELL DISTRIBUTION WIDTH 15.9 % (12.0-15.0); WHITE BLOOD COUNT 9.1 x10^3/uL (4.8-10.8)
[2021-06-18 05:43] LABS: CALCIUM 8.2 mg/dL (8.5-10.3); CREATININE 0.6 mg/dL (0.4-1.0); POTASSIUM 3.8 mmol/L (3.5-5.0)
[2021-06-18] MEDS: SODIUM CHLORIDE FLUSH 0.9% 10 ML SYRINGE IVP SCH ×3 (06:52→19:19)
[2021-06-18] MEDS: INSULIN ASPART 300 UNIT/3 ML PEN SUBQ SCH ×4 (09:19→22:04)
[2021-06-18] MEDS: ENOXAPARIN 40 MG/0.4 ML SYRINGE SUBQ SCH (09:23)
[2021-06-18] MEDS: REMDESIVIR 100MG VIAL 100 MG in SODIUM CHLORIDE 0.9% 100ML 100 ML IV SCH (09:23)
[2021-06-18] MEDS: BENZONATATE 100 MG CAPSULE PO PRN (09:24)
[2021-06-18] MEDS: DEXAMETHASONE 4 MG/ML VIAL IVP SCH (09:24)
[2021-06-18] MEDS: guaiFENesin 600 MG TABLET PO SCH ×2 (09:24→21:13)
[2021-06-18] MEDS: ONDANSETRON ODT 4 MG TABLET TL PRN ×2 (09:29→21:13)
--- NOTE | 2021-06-18 12:46 | PROVIDER PROGRESS NOTE ---
Assessment/Plan - Problem List (1) Acute respiratory failure with hypoxia Assessment/Plan: This is worse compared to yesterday. She is now on 4 L of oxygen via nasal cannula. This is secondary to COVID-19 pneumonia. We will continue her on remdesivir and Decadron with today being day 3. Given the lack of white count and fever, we will hold off on antibiotics. Continue supplemental oxygen. Lovenox for DVT prophylaxis. (2) Pneumonia due to COVID-19 virus Assessment/Plan: As above (3) Diarrhea due to COVID-19 Assessment/Plan: Will change diet to one more easily digested Will order Imodium prn - Current Meds Current Meds: Current Medications Generic Name Dose Route Start Last Admin Trade Name Freq PRN Reason Stop Dose Admin Benzonatate 100 mg 06/16/21 16:24 06/18/21 09:24 Benzonatate 100 Mg Capsule PO 100 mg TID PRN Administration Cough Dexamethasone 6 mg 06/16/21 14:00 06/18/21 09:24 Dexamethasone 4 Mg/Ml Vial IVP 6 mg DAILY [facility] Administration Enoxaparin Sodium 40 mg 06/17/21 09:00 06/18/21 09:23 Enoxaparin 40 Mg/0.4 Ml Syringe SUBQ 40 mg DAILY [facility] Administration Guaifenesin 600 mg 06/16/21 21:00 06/18/21 09:24 Guaifenesin 600 Mg Tablet PO 600 mg BID [facility] Administration Remdesivir 100 mg/ Sodium 100 mls @ 200 mls/hr 06/17/21 09:00 06/18/21 09:23 Chloride IV 06/20/21 09:29 100 mls/hr DAILY [facility] Administration Insulin Aspart 1 - 9 unit 06/16/21 17:00 06/18/21 09:19 Insulin Aspart 300 Unit/3 Ml Pen SUBQ Not Given 0800,1200,1700,2100 [facility] Protocol Ondansetron HCl 4 mg 06/16/21 12:58 06/18/21 09:29 Ondansetron Odt 4 Mg Tablet TL 4 mg Q6HR PRN Administration Nausea / Vomiting Sodium Chloride 10 ml 06/16/21 17:00 06/18/21 09:24 Sodium Chloride Flush 0.9% 10 Ml Syringe IVP 10 ml 0100,0900,1700 [facility] Administration - Lab Result Fish Bone Diagrams: 06/18/21 05:18 06/18/21 05:18 Subjective - Subjective Patient Reports: Resting Comfortably (ever since on higher O2 setting) Nursing Reports: Other (RN reported she still has diarrhea and she needed Zofran foe wretching) Objective Vital Signs: Vital Signs - 24 hr 06/17/21 06/17/21 06/17/21 13:00 16:12 20:13 Temperature 38.6 C H 38.6 C H 37.1 C Heart Rate Heart Rate [ 66 62 62 Monitoring electrodes] Respiratory 20 22 23 Rate Blood Pressure 95/56 L 100/62 88/49 L [Left Brachial artery] O2 Saturation 4 L 94 95 06/18/21 06/18/21 06/18/21 00:39 04:00 07:05 Temperature 36.8 C 36.7 C 36.7 C Heart Rate 71 Heart Rate [ 52 L 54 L Monitoring electrodes] Respiratory 19 18 28 H Rate Blood Pressure 90/59 L 97/61 [Left Brachial artery] O2 Saturation 95 97 95 06/18/21 08:09 Temperature 36.8 C Heart Rate Heart Rate [ 60 Monitoring electrodes] Respiratory 13 Rate Blood Pressure 131/89 H [Left Brachial artery] O2 Saturation 96 Oxygen O2 Source [facility] I&O (Last 24 Hrs): Intake and Output Totals x24h 06/16/21 06/17/21 06/18/21 23:59 23:59 23:59 Intake Total 3250 3823.333 Output Total 850 3650 1225 Balance 2400 173.333 -1225 General: Alert, Oriented x3 HEENT: PERRLA, EOMI Neck: Supple, No JVD Neuro: Alert, Non Focal Cardiovascular: Regular rate, No murmurs Respiratory: Breath sounds nml Abdomen: Normal bowel sounds, Soft Extremities: No clubbing, No edema, No tenderness/swelling - Results Results: Laboratory Results WBC 9.1 x10^3/uL (4.8-10.8) 06/18/21 05:18 RBC 4.12 10^6/uL (4.20-5.40) L 06/18/21 05:18 Hgb 11.2 g/dL (12.0-16.0) L 06/18/21 05:18 Hct 34.1 % (37.0-47.0) L 06/18/21 05:18 MCV 82.8 fL (81.0-99.0) 06/18/21 05:18 MCH 27.2 pg (27.0-31.0) 06/18/21 05:18 MCHC 32.8 g/dL (32.0-36.0) 06/18/21 05:18 RDW 15.9 % (12.0-15.0) H 06/18/21 05:18 Plt Count 307 10^3/uL (130-450) 06/18/21 05:18 MPV 9.6 fL (7.9-10.8) 06/18/21 05:18 Neut # (Auto) 7.4 10^3/uL (1.5-6.6) H 06/18/21 05:18 Lymph # (Auto) 1.3 10^3/uL (1.5-3.5) L 06/18/21 05:18 [place] # (Auto) 0.3 10^3/uL (0.0-1.0) 06/18/21 05:18 Eos # (Auto) 0.0 10^3/uL (0.0-0.7) 06/18/21 05:18 Baso # (Auto) 0.0 10^3/uL (0.0-0.1) 06/18/21 05:18 Absolute Nucleated RBC 0.00 x10^3/uL 06/18/21 05:18 Nucleated RBC % 0.0 /100WBC 06/18/21 05:18 Sodium 136 mmol/L (135-145) 06/18/21 05:18 Potassium 3.8 mmol/L (3.5-5.0) 06/18/21 05:18 Chloride 102 mmol/L (101-111) 06/18/21 05:18 Carbon Dioxide 23 mmol/L (21-32) 06/18/21 05:18 Anion Gap 11.0 (6-13) 06/18/21 05:18 BUN 21 mg/dL (6-20) H 06/18/21 05:18 Creatinine 0.6 mg/dL (0.4-1.0) 06/18/21 05:18 Estimated GFR (MDRD) 102 (>89) 06/18/21 05:18 Glucose 113 mg/dL (70-100) H 06/18/21 05:18 POC Whole Bld Glucose 112 mg/dL (70 - 100) H 06/18/21 07:55 Lactic Acid 1.5 mmol/L (0.5-2.2) 06/16/21 10:53 Calcium 8.2 mg/dL (8.5-10.3) L 06/18/21 05:18 Magnesium 2.0 mg/dL (1.7-2.8) 06/18/21 05:18 Total Bilirubin 0.6 mg/dL (0.2-1.0) 06/16/21 10:45 AST 47 IU/L (10-42) H 06/16/21 10:45 ALT 16 IU/L (10-60) 06/16/21 10:45 Alkaline Phosphatase 53 IU/L (42-121) 06/16/21 10:45 Total Protein 7.8 g/dL (6.7-8.2) 06/16/21 10:45 Albumin 3.3 g/dL (3.2-5.5) 06/16/21 10:45 Globulin 4.5 g/dL (2.1-4.2) H 06/16/21 10:45 Albumin/Globulin Ratio 0.7 (1.0-2.2) L 06/16/21 10:45 Urine Color DARK YELLOW 06/16/21 11:21 Urine Clarity CLEAR (CLEAR) 06/16/21 11:21 Urine pH 6.0 PH (5.0-7.5) 06/16/21 11:21 Ur Specific [place] 1.025 (1.002-1.030) 06/16/21 11:21 Urine Protein 30 mg/dL (NEGATIVE) H 06/16/21 11:21 Urine Glucose (UA) NEGATIVE mg/dL (NEGATIVE) 06/16/21 11:21 Urine Ketones NEGATIVE mg/dL (NEGATIVE) 06/16/21 11:21 Urine Occult Blood TRACE-INTA (NEGATIVE) 06/16/21 11: Urine Nitrite NEGATIVE (NEGATIVE) 06/16/21 11:21 Urine Bilirubin NEGATIVE (NEGATIVE) 06/16/21 11:21 Urine Urobilinogen 0.2 (NORMAL) E.U./dL (NORMAL) 06/16/21 11: Ur Leukocyte Esterase NEGATIVE (NEGATIVE) 06/16/21 11:21 Urine RBC 0-5 /HPF (0-5) 06/16/21 11:21 Urine WBC 0-3 /HPF (0-5) 06/16/21 11:21 Ur Squamous Epith Cells RARE Squamous (<= Few) 06/16/21 11:21 Amorphous Sediment Few /LPF 06/16/21 11:21 Urine Bacteria Few /HPF (None Seen) 06/16/21 11:21 Urine Casts 0-2 Hyaline Casts /LPF 06/16/21 11:21 Urine Mucus Few Strands 06/16/21 11:21 Urine Culture Comments NOT INDICATED 06/16/21 11:21 Nasal Adenovirus (PCR) NOT DETECTED 06/16/21 10:46 Nasal B. parapertussis DNA (PCR) NOT DETECTED 06/16/21 10:46 Nasal Coronavir 229E PCR NOT DETECTED 06/16/21 10:46 Nasal Coronavir HKU1 PCR NOT DETECTED 06/16/21 10:46 Nasal Coronavir NL63 PCR NOT DETECTED 06/16/21 10:46 Nasal Coronavir OC43 PCR NOT DETECTED 06/16/21 10:46 Nasal Enterovir/Rhinovir PCR NOT DETECTED 06/16/21 10:46 Nasal Influenza B PCR NOT DETECTED 06/16/21 10:46 Nasal Influenza A PCR NOT DETECTED 06/16/21 10:46 Nasal Parainfluen 1 PCR NOT DETECTED 06/16/21 10:46 Nasal Parainfluen 2 PCR NOT DETECTED 06/16/21 10:46 Nasal Parainfluen 3 PCR NOT DETECTED 06/16/21 10:46 Nasal Parainfluen 4 PCR NOT DETECTED 06/16/21 10:46 Nasal RSV (PCR) NOT DETECTED 06/16/21 10:46 Nasal Screen MRSA (PCR) NEGATIVE (NEGATIVE) 06/16/21 15:00 Nasal B.pertussis DNA PCR NOT DETECTED 06/16/21 10:46 Nasal C.pneumoniae (PCR) NOT DETECTED 06/16/21 10:46 [place] Human Metapneumo PCR NOT DETECTED 06/16/21 10:46 Nasal M.pneumoniae (PCR) NOT DETECTED 06/16/21 10:46 Nasal SARS-CoV-2 (PCR) DETECTED A 06/16/21 10:46
[2021-06-18] MEDS ORDERED: LOPERAMIDE 2 MG CAPSULE PO PRN (15:02)
[2021-06-18] MEDS: SACCHAROMYCES BOULARDII 250 MG CAPSULE PO SCH (21:18)
[2021-06-19 05:22] LABS: BASOPHILS % (AUTO) 0.1 %; HCT - HEMATOCRIT 30.5 % (37.0-47.0); HGB - HEMOGLOBIN 10.2 g/dL (12.0-16.0); LYMPHOCYTES # (AUTO) 0.7 10^3/uL (1.5-3.5); LYMPHOCYTES % (AUTO) 9.9 %; MEAN CORPUSCULAR HEMOGLOBIN 27.3 pg (27.0-31.0); MEAN CORPUSCULAR HGB CONC 33.4 g/dL (32.0-36.0); MEAN CORPUSCULAR VOLUME 81.6 fL (81.0-99.0); MEAN PLATELET VOLUME 10.8 fL (7.9-10.8); MONOCYTES # (AUTO) 0.3 10^3/uL (0.0-1.0); MONOCYTES % (AUTO) 3.5 %; NEUTROPHILS # (AUTO) 6.1 10^3/uL (1.5-6.6); NEUTROPHILS % (AUTO) 85.9 %; PLT - PLATELET COUNT 321 10^3/uL (130-450); RED BLOOD COUNT 3.74 10^6/uL (4.20-5.40); RED CELL DISTRIBUTION WIDTH 15.4 % (12.0-15.0); WHITE BLOOD COUNT 7.1 x10^3/uL (4.8-10.8)
[2021-06-19 05:30] LABS: CALCIUM 7.9 mg/dL (8.5-10.3); CREATININE 0.5 mg/dL (0.4-1.0); POTASSIUM 3.8 mmol/L (3.5-5.0)
[2021-06-19] MEDS: INSULIN ASPART 300 UNIT/3 ML PEN SUBQ SCH ×3 (08:34→17:02)
[2021-06-19] MEDS: REMDESIVIR 100MG VIAL 100 MG in SODIUM CHLORIDE 0.9% 100ML 100 ML IV SCH (09:00)
[2021-06-19] MEDS: SODIUM CHLORIDE FLUSH 0.9% 10 ML SYRINGE IVP SCH ×3 (09:00→17:03)
[2021-06-19] MEDS: CHOLECALCIFEROL 25 MCG TABLET PO SCH (09:05)
[2021-06-19] MEDS: SACCHAROMYCES BOULARDII 250 MG CAPSULE PO SCH ×2 (09:05→17:10)
[2021-06-19] MEDS: guaiFENesin 600 MG TABLET PO SCH ×2 (09:05→21:41)
[2021-06-19] MEDS: ENOXAPARIN 40 MG/0.4 ML SYRINGE SUBQ SCH (09:05)
[2021-06-19] MEDS: DEXAMETHASONE 4 MG/ML VIAL IVP SCH (09:05)
--- NOTE | 2021-06-19 12:58 | PROVIDER PROGRESS NOTE ---
Assessment/Plan - Problem List (1) Acute respiratory failure with hypoxia Assessment/Plan: This is slightly worse compared to yesterday requiring higher suppl oxygen. This is secondary to COVID-19 pneumonia. We will continue her on remdesivir and Decadron with today being day 4. Given the lack of white count and fever, we will hold off on antibiotics. Continue supplemental oxygen. Lovenox for DVT prophylaxis. (2) Pneumonia due to COVID-19 virus Assessment/Plan: As above (3) Diarrhea due to COVID-19 Assessment/Plan: We changed diet to one more easily digested Will order Imodium prn - Current Meds Current Meds: Current Medications Generic Name Dose Route Start Last Admin Trade Name Freq PRN Reason Stop Dose Admin Benzonatate 100 mg 06/16/21 16:24 06/18/21 09:24 Benzonatate 100 Mg Capsule PO 100 mg TID PRN Administration Cough Cholecalciferol 50 mcg 06/19/21 09:00 06/19/21 09:05 Cholecalciferol 25 Mcg Tablet PO 50 mcg DAILY STONEY Administration Dexamethasone 6 mg 06/16/21 14:00 06/19/21 09:05 Dexamethasone 4 Mg/Ml Vial IVP 6 mg DAILY STONEY Administration Enoxaparin Sodium 40 mg 06/17/21 09:00 06/19/21 09:05 Enoxaparin 40 Mg/0.4 Ml Syringe SUBQ 40 mg DAILY STONEY Administration Guaifenesin 600 mg 06/16/21 21:00 06/19/21 09:05 Guaifenesin 600 Mg Tablet PO 600 mg BID STONEY Administration Remdesivir 100 mg/ Sodium 100 mls @ 200 mls/hr 06/17/21 09:00 06/19/21 10:00 Chloride IV 06/20/21 09:29 Infused DAILY STONEY Infusion Insulin Aspart 1 - 9 unit 06/16/21 17:00 06/19/21 12:36 Insulin Aspart 300 Unit/3 Ml Pen SUBQ Not Given 0800,1200,1700,2100 [facility] Protocol Ondansetron HCl 4 mg 06/16/21 12:58 06/18/21 21:13 Ondansetron Odt 4 Mg Tablet TL 4 mg Q6HR PRN Administration Nausea / Vomiting Saccharomyces Boulardii 250 mg 06/18/21 17:00 06/19/21 09:05 Saccharomyces Boulardii 250 Mg Capsule PO 250 mg BIDWM STONEY Administration Sodium Chloride 10 ml 06/16/21 17:00 06/19/21 09:05 Sodium Chloride Flush 0.9% 10 Ml Syringe IVP 10 ml 0100,0900,1700 STONEY Administration - Lab Result Fish Bone Diagrams: 06/19/21 04:18 06/19/21 04:18 - Additional Planning My Orders: My Active Orders 06/18/21 15:02 Loperamide [Imodium] 2 mg PO QID PRN 06/18/21 Dinner DIET [Soft (Low Fiber) Diet] [DIET] 06/18/21 17:00 Saccharomyces Boulardii [Florastor] 250 mg PO BIDWM 06/19/21 09:00 Cholecalciferol [Vitamin D3] 50 mcg PO DAILY Subjective - Subjective Patient Reports: Resting Comfortably Nursing Reports: Other (Still poor apetite, unchanged SOB) Objective Vital Signs: Vital Signs - 24 hr 06/18/21 06/18/21 06/18/21 13:00 16:20 20:12 Temperature 36.6 C 36.8 C Heart Rate [ 61 57 L 58 L Monitoring electrodes] Respiratory 25 H 18 23 Rate Blood Pressure 88/50 L 100/58 L 95/73 [Left Brachial artery] O2 Saturation 90 L 98 96 06/19/21 06/19/21 06/19/21 01:00 05:00 08:18 Temperature 98.6 C H Heart Rate [ 57 L 50 L 52 L Monitoring electrodes] Respiratory 25 H 19 18 Rate Blood Pressure 93/53 L 104/61 102/66 [Left Brachial artery] O2 Saturation 90 L 96 98 Oxygen O2 Source [facility] I&O (Last 24 Hrs): Intake and Output Totals x24h 06/17/21 06/18/21 06/19/21 23:59 23:59 23:59 Intake Total 3823.333 900 540 Output Total 3650 6585 975 Balance 173.333 -6650 -270 General: Other ((Remote vist done) Pt sleeping) HEENT: Mucous membr. moist/pink Neuro: Alert Cardiovascular: Regular rate Respiratory: No respiratory distress (when on O2) Abdomen: Soft Extremities: No edema - Results Results: Laboratory Results WBC 7.1 x10^3/uL (4.8-10.8) 06/19/21 04:18 RBC 3.74 10^6/uL (4.20-5.40) L 06/19/21 04:18 Hgb 10.2 g/dL (12.0-16.0) L 06/19/21 04:18 Hct 30.5 % (37.0-47.0) L 06/19/21 04:18 MCV 81.6 fL (81.0-99.0) 06/19/21 04:18 MCH 27.3 pg (27.0-31.0) 06/19/21 04:18 MCHC 33.4 g/dL (32.0-36.0) 06/19/21 04:18 RDW 15.4 % (12.0-15.0) H 06/19/21 04:18 Plt Count 321 10^3/uL (130-450) 06/19/21 04:18 MPV 10.8 fL (7.9-10.8) 06/19/21 04:18 Neut # (Auto) 6.1 10^3/uL (1.5-6.6) 06/19/21 04:18 Lymph # (Auto) 0.7 10^3/uL (1.5-3.5) L 06/19/21 04:18 [place] # (Auto) 0.3 10^3/uL (0.0-1.0) 06/19/21 04:18 Eos # (Auto) 0.0 10^3/uL (0.0-0.7) 06/19/21 04:18 Baso # (Auto) 0.0 10^3/uL (0.0-0.1) 06/19/21 04:18 Absolute Nucleated RBC 0.00 x10^3/uL 06/19/21 04:18 Nucleated RBC % 0.0 /100WBC 06/19/21 04:18 Sodium 134 mmol/L (135-145) L 06/19/21 04:18 Potassium 3.8 mmol/L (3.5-5.0) 06/19/21 04:18 Chloride 101 mmol/L (101-111) 06/19/21 04:18 Carbon Dioxide 22 mmol/L (21-32) 06/19/21 04:18 Anion Gap 11.0 (6-13) 06/19/21 04:18 BUN 21 mg/dL (6-20) H 06/19/21 04:18 Creatinine 0.5 mg/dL (0.4-1.0) 06/19/21 04:18 Estimated GFR (MDRD) 126 (>89) 06/19/21 04:18 Glucose 107 mg/dL (70-100) H 06/19/21 04:18 POC Whole Bld Glucose 117 mg/dL (70 - 100) H 06/19/21 11:44 Lactic Acid 1.5 mmol/L (0.5-2.2) 06/16/21 10:53 Calcium 7.9 mg/dL (8.5-10.3) L 06/19/21 04:18 Magnesium 2.0 mg/dL (1.7-2.8) 06/19/21 04:18 Total Bilirubin 0.6 mg/dL (0.2-1.0) 06/16/21 10:45 AST 47 IU/L (10-42) H 06/16/21 10:45 ALT 16 IU/L (10-60) 06/16/21 10:45 Alkaline Phosphatase 53 IU/L (42-121) 06/16/21 10:45 Total Protein 7.8 g/dL (6.7-8.2) 06/16/21 10:45 Albumin 3.3 g/dL (3.2-5.5) 06/16/21 10:45 Globulin 4.5 g/dL (2.1-4.2) H 06/16/21 10:45 Albumin/Globulin Ratio 0.7 (1.0-2.2) L 06/16/21 10:45 25-OH Vitamin D Total 51 ng/mL (30-100) 06/18/21 14:54 Urine Color DARK YELLOW 06/16/21 11:21 Urine Clarity CLEAR (CLEAR) 06/16/21 11:21 Urine pH 6.0 PH (5.0-7.5) 06/16/21 11: Ur Specific [place] 1.025 (1.002-1.030) 06/16/21 11:21 Urine Protein 30 mg/dL (NEGATIVE) H 06/16/21 11:21 Urine Glucose (UA) NEGATIVE mg/dL (NEGATIVE) 06/16/21 11: Urine Ketones NEGATIVE mg/dL (NEGATIVE) 06/16/21 11:21 Urine Occult Blood TRACE-INTA (NEGATIVE) 06/16/21 11:21 Urine Nitrite NEGATIVE (NEGATIVE) 06/16/21 11:21 Urine Bilirubin NEGATIVE (NEGATIVE) 06/16/21 11:21 Urine Urobilinogen 0.2 (NORMAL) E.U./dL (NORMAL) 06/16/21 11:21 Ur Leukocyte Esterase NEGATIVE (NEGATIVE) 06/16/21 11:21 Urine RBC 0-5 /HPF (0-5) 06/16/21 11:21 Urine WBC 0-3 /HPF (0-5) 06/16/21 11:21 Ur Squamous Epith Cells RARE Squamous (<= Few) 06/16/21 11:21 Amorphous Sediment Few /LPF 06/16/21 11:21 Urine Bacteria Few /HPF (None Seen) 06/16/21 11:21 Urine Casts 0-2 Hyaline Casts /LPF 06/16/21 11:21 Urine Mucus Few Strands 06/16/21 11:21 Urine Culture Comments NOT INDICATED 06/16/21 11:21 Nasal Adenovirus (PCR) NOT DETECTED 06/16/21 10:46 Nasal B. parapertussis DNA (PCR) NOT DETECTED 06/16/21 10:46 Nasal Coronavir 229E PCR NOT DETECTED 06/16/21 10:46 Nasal Coronavir HKU1 PCR NOT DETECTED 06/16/21 10:46 Nasal Coronavir NL63 PCR NOT DETECTED 06/16/21 10:46 Nasal Coronavir OC43 PCR NOT DETECTED 06/16/21 10:46 Nasal Enterovir/Rhinovir PCR NOT DETECTED 06/16/21 10:46 Nasal Influenza B PCR NOT DETECTED 06/16/21 10:46 Nasal Influenza A PCR NOT DETECTED 06/16/21 10:46 Nasal Parainfluen 1 PCR NOT DETECTED 06/16/21 10:46 Nasal Parainfluen 2 PCR NOT DETECTED 06/16/21 10:46 Nasal Parainfluen 3 PCR NOT DETECTED 06/16/21 10:46 Nasal Parainfluen 4 PCR NOT DETECTED 06/16/21 10:46 Nasal RSV (PCR) NOT DETECTED 06/16/21 10:46 Nasal Screen MRSA (PCR) NEGATIVE (NEGATIVE) 06/16/21 15:00 Nasal B.pertussis DNA PCR NOT DETECTED 06/16/21 10:46 Nasal C.pneumoniae (PCR) NOT DETECTED 06/16/21 10:46 [place] Human Metapneumo PCR NOT DETECTED 06/16/21 10:46 Nasal M.pneumoniae (PCR) NOT DETECTED 06/16/21 10:46 Nasal SARS-CoV-2 (PCR) DETECTED A 06/16/21 10:46
[2021-06-19] MEDS: ACETAMINOPHEN 325 MG TABLET PO PRN (21:40)
[2021-06-20] MEDS: SODIUM CHLORIDE FLUSH 0.9% 10 ML SYRINGE IVP SCH ×4 (01:11→22:32)
[2021-06-20] MEDS: INSULIN ASPART 300 UNIT/3 ML PEN SUBQ SCH ×5 (01:11→21:21)
[2021-06-20 05:00] LABS: BASOPHILS % (AUTO) 0.2 %; EOSINOPHILS % (AUTO) 0.2 %; HGB - HEMOGLOBIN 10.6 g/dL (12.0-16.0); LYMPHOCYTES # (AUTO) 0.6 10^3/uL (1.5-3.5); LYMPHOCYTES % (AUTO) 11.9 %; MEAN CORPUSCULAR HEMOGLOBIN 27.4 pg (27.0-31.0); MEAN CORPUSCULAR HGB CONC 33.1 g/dL (32.0-36.0); MEAN CORPUSCULAR VOLUME 82.7 fL (81.0-99.0); MEAN PLATELET VOLUME 10.4 fL (7.9-10.8); MONOCYTES # (AUTO) 0.1 10^3/uL (0.0-1.0); MONOCYTES % (AUTO) 2.3 %; NEUTROPHILS # (AUTO) 4.4 10^3/uL (1.5-6.6); NEUTROPHILS % (AUTO) 84.8 %; PLT - PLATELET COUNT 310 10^3/uL (130-450); RED BLOOD COUNT 3.87 10^6/uL (4.20-5.40); RED CELL DISTRIBUTION WIDTH 15.2 % (12.0-15.0); WHITE BLOOD COUNT 5.1 x10^3/uL (4.8-10.8)
[2021-06-20 05:07] LABS: CREATININE 0.6 mg/dL (0.4-1.0); MAGNESIUM 2.1 mg/dL (1.7-2.8)
[2021-06-20] MEDS: CHOLECALCIFEROL 25 MCG TABLET PO SCH (08:25)
[2021-06-20] MEDS: SACCHAROMYCES BOULARDII 250 MG CAPSULE PO SCH ×2 (08:25→17:06)
[2021-06-20] MEDS: guaiFENesin 600 MG TABLET PO SCH ×2 (08:26→21:19)
[2021-06-20] MEDS: DEXAMETHASONE 4 MG/ML VIAL IVP SCH (08:30)
[2021-06-20] MEDS: ENOXAPARIN 40 MG/0.4 ML SYRINGE SUBQ SCH (08:30)
[2021-06-20] MEDS: REMDESIVIR 100MG VIAL 100 MG in SODIUM CHLORIDE 0.9% 100ML 100 ML IV SCH (10:00)
--- NOTE | 2021-06-20 10:14 | PROVIDER PROGRESS NOTE ---
Assessment/Plan - Problem List (1) Acute respiratory failure with hypoxia Assessment/Plan: Her resp status has changed to needing higher FIO2 at 60% and 50L. Continue to treat the underlying COVID pneumionia and give suppl O2, keeping sats > 90%. Self-proning was advised. (2) Pneumonia due to COVID-19 virus Assessment/Plan: She is more lethergic and possibly weaker today. Continue with suppl O2, Mucinex, Remdesivir and Decadron and contact isolation. (3) Hypoglycemia Assessment/Plan: Possibly caused from sleeping through breakfast. She is not a Diabetic however. She got OJ and improved. Continue to monitor. (4) Diarrhea due to COVID-19 Assessment/Plan: We changed diet to one more easily digested Also Imodium prn - Current Meds Current Meds: Current Medications Generic Name Dose Route Start Last Admin Trade Name Freq PRN Reason Stop Dose Admin Acetaminophen 650 mg 06/16/21 12:58 06/19/21 21:40 Acetaminophen 325 Mg Tablet PO 650 mg Q4HR PRN Administration Pain 1 to 4 Benzonatate 100 mg 06/16/21 16:24 06/18/21 09:24 Benzonatate 100 Mg Capsule PO 100 mg TID PRN Administration Cough Cholecalciferol 50 mcg 06/19/21 09:00 06/20/21 08:25 Cholecalciferol 25 Mcg Tablet PO 50 mcg DAILY STONEY Administration Dexamethasone 6 mg 06/16/21 14:00 06/20/21 08:30 Dexamethasone 4 Mg/Ml Vial IVP 6 mg DAILY STONEY Administration Enoxaparin Sodium 40 mg 06/17/21 09:00 06/20/21 08:30 Enoxaparin 40 Mg/0.4 Ml Syringe SUBQ 40 mg DAILY STONEY Administration Guaifenesin 600 mg 06/16/21 21:00 06/20/21 08:26 Guaifenesin 600 Mg Tablet PO 600 mg BID STONEY Administration Insulin Aspart 1 - 9 unit 06/16/21 17:00 06/20/21 08:05 Insulin Aspart 300 Unit/3 Ml Pen SUBQ Not Given 0800,1200,1700,2100 [facility] Protocol Ondansetron HCl 4 mg 06/16/21 12:58 06/18/21 21:13 Ondansetron Odt 4 Mg Tablet TL 4 mg Q6HR PRN Administration Nausea / Vomiting Saccharomyces Boulardii 250 mg 06/18/21 17:00 06/20/21 08:25 Saccharomyces Regladii 250 Mg Capsule PO 250 mg BIDWM STONEY Administration Sodium Chloride 10 ml 06/16/21 17:00 06/20/21 08:30 Sodium Chloride Flush 0.9% 10 Ml Syringe IVP 10 ml 0100,0900,1700 STONEY Administration - Lab Result Fish Bone Diagrams: 06/20/21 04:36 06/20/21 04:36 Subjective - Subjective Patient Reports: Fatigue (didmt sleep well overnight and wants to sleep more now) Objective Vital Signs: Vital Signs - 24 hr 06/19/21 06/19/21 06/19/21 13:00 15:35 17:00 Temperature 37.2 C Heart Rate [ 65 56 L Monitoring electrodes] Respiratory 27 H 17 23 Rate Blood Pressure 100/56 L [Left Brachial artery] Blood Pressure 91/51 L [Right Brachial artery] O2 Saturation 96 100 97 06/19/21 06/20/21 06/20/21 20:38 01:00 05:00 Temperature 36.8 C Heart Rate [ 59 L 67 64 Monitoring electrodes] Respiratory 15 25 H 25 H Rate Blood Pressure [Left Brachial artery] Blood Pressure 85/51 L 100/54 L 99/60 [Right Brachial artery] O2 Saturation 92 98 95 06/20/21 07:38 Temperature 98.6 C H Heart Rate [ 69 Monitoring electrodes] Respiratory 21 Rate Blood Pressure [Left Brachial artery] Blood Pressure 96/57 L [Right Brachial artery] O2 Saturation 94 Oxygen O2 Source [facility] I&O (Last 24 Hrs): Intake and Output Totals x24h 06/18/21 06/19/21 06/20/21 23:59 23:59 23:59 Intake Total 900 2116 240 Output Total 0739 6524 800 Balance -1975 -534 -560 General: Other ((Visit done remotely) She is asleep) HEENT: Mucous membr. moist/pink Neck: No JVD Neuro: Other (Sleepy) Cardiovascular: Regular rate Respiratory: Other (On O2 suppl) Abdomen: Soft Extremities: No edema - Results Results: Laboratory Results WBC 5.1 x10^3/uL (4.8-10.8) 06/20/21 04:36 RBC 3.87 10^6/uL (4.20-5.40) L 06/20/21 04:36 Hgb 10.6 g/dL (12.0-16.0) L 06/20/21 04:36 Hct 32.0 % (37.0-47.0) L 06/20/21 04:36 MCV 82.7 fL (81.0-99.0) 06/20/21 04:36 MCH 27.4 pg (27.0-31.0) 06/20/21 04:36 MCHC 33.1 g/dL (32.0-36.0) 06/20/21 04:36 RDW 15.2 % (12.0-15.0) H 06/20/21 04:36 Plt Count 310 10^3/uL (130-450) 06/20/21 04:36 MPV 10.4 fL (7.9-10.8) 06/20/21 04:36 Neut # (Auto) 4.4 10^3/uL (1.5-6.6) 06/20/21 04:36 Lymph # (Auto) 0.6 10^3/uL (1.5-3.5) L 06/20/21 04:36 [place] # (Auto) 0.1 10^3/uL (0.0-1.0) 06/20/21 04:36 Eos # (Auto) 0.0 10^3/uL (0.0-0.7) 06/20/21 04:36 Baso # (Auto) 0.0 10^3/uL (0.0-0.1) 06/20/21 04:36 Absolute Nucleated RBC 0.00 x10^3/uL 06/20/21 04:36 Nucleated RBC % 0.0 /100WBC 06/20/21 04:36 Sodium 135 mmol/L (135-145) 06/20/21 04:36 Potassium 4.0 mmol/L (3.5-5.0) 06/20/21 04:36 Chloride 101 mmol/L (101-111) 06/20/21 04:36 Carbon Dioxide 24 mmol/L (21-32) 06/20/21 04:36 Anion Gap 10.0 (6-13) 06/20/21 04:36 BUN 19 mg/dL (6-20) 06/20/21 04:36 Creatinine 0.6 mg/dL (0.4-1.0) 06/20/21 04:36 Estimated GFR (MDRD) 102 (>89) 06/20/21 04:36 Glucose 108 mg/dL (70-100) H 06/20/21 04:36 POC Whole Bld Glucose 95 mg/dL (70 - 100) 06/20/21 07:34 Lactic Acid 1.5 mmol/L (0.5-2.2) 06/16/21 10:53 Calcium 8.0 mg/dL (8.5-10.3) L 06/20/21 04:36 Magnesium 2.1 mg/dL (1.7-2.8) 06/20/21 04:36 Total Bilirubin 0.6 mg/dL (0.2-1.0) 06/16/21 10:45 AST 47 IU/L (10-42) H 06/16/21 10:45 ALT 16 IU/L (10-60) 06/16/21 10:45 Alkaline Phosphatase 53 IU/L (42-121) 06/16/21 10:45 Total Protein 7.8 g/dL (6.7-8.2) 06/16/21 10:45 Albumin 3.3 g/dL (3.2-5.5) 06/16/21 10:45 Globulin 4.5 g/dL (2.1-4.2) H 06/16/21 10:45 Albumin/Globulin Ratio 0.7 (1.0-2.2) L 06/16/21 10:45 25-OH Vitamin D Total 51 ng/mL (30-100) 06/18/21 14:54 Urine Color DARK YELLOW 06/16/21 11:21 Urine Clarity CLEAR (CLEAR) 06/16/21 11:21 Urine pH 6.0 PH (5.0-7.5) 06/16/21 11:21 Ur Specific [place] 1.025 (1.002-1.030) 06/16/21 11:21 Urine Protein 30 mg/dL (NEGATIVE) H 06/16/21 11:21 Urine Glucose (UA) NEGATIVE mg/dL (NEGATIVE) 06/16/21 11: Urine Ketones NEGATIVE mg/dL (NEGATIVE) 06/16/21 11: Urine Occult Blood TRACE-INTA (NEGATIVE) 06/16/21 11:21 Urine Nitrite NEGATIVE (NEGATIVE) 06/16/21 11:21 Urine Bilirubin NEGATIVE (NEGATIVE) 06/16/21 11:21 Urine Urobilinogen 0.2 (NORMAL) E.U./dL (NORMAL) 06/16/21 11:21 Ur Leukocyte Esterase NEGATIVE (NEGATIVE) 06/16/21 11:21 Urine RBC 0-5 /HPF (0-5) 06/16/21 11:21 Urine WBC 0-3 /HPF (0-5) 06/16/21 11:21 Ur Squamous Epith Cells RARE Squamous (<= Few) 06/16/21 11:21 Amorphous Sediment Few /LPF 06/16/21 11:21 Urine Bacteria Few /HPF (None Seen) 06/16/21 11:21 Urine Casts 0-2 Hyaline Casts /LPF 06/16/21 11:21 Urine Mucus Few Strands 06/16/21 11:21 Urine Culture Comments NOT INDICATED 06/16/21 11:21 Nasal Adenovirus (PCR) NOT DETECTED 06/16/21 10:46 Nasal B. parapertussis DNA (PCR) NOT DETECTED 06/16/21 10:46 Nasal Coronavir 229E PCR NOT DETECTED 06/16/21 10:46 Nasal Coronavir HKU1 PCR NOT DETECTED 06/16/21 10:46 Nasal Coronavir NL63 PCR NOT DETECTED 06/16/21 10:46 Nasal Coronavir OC43 PCR NOT DETECTED 06/16/21 10:46 Nasal Enterovir/Rhinovir PCR NOT DETECTED 06/16/21 10:46 Nasal Influenza B PCR NOT DETECTED 06/16/21 10:46 Nasal Influenza A PCR NOT DETECTED 06/16/21 10:46 Nasal Parainfluen 1 PCR NOT DETECTED 06/16/21 10:46 Nasal Parainfluen 2 PCR NOT DETECTED 06/16/21 10:46 Nasal Parainfluen 3 PCR NOT DETECTED 06/16/21 10:46 Nasal Parainfluen 4 PCR NOT DETECTED 06/16/21 10:46 Nasal RSV (PCR) NOT DETECTED 06/16/21 10:46 Nasal Screen MRSA (PCR) NEGATIVE (NEGATIVE) 06/16/21 15:00 Nasal B.pertussis DNA PCR NOT DETECTED 06/16/21 10:46 Nasal C.pneumoniae (PCR) NOT DETECTED 06/16/21 10:46 [place] Human Metapneumo PCR NOT DETECTED 06/16/21 10:46 Nasal M.pneumoniae (PCR) NOT DETECTED 06/16/21 10:46 Nasal SARS-CoV-2 (PCR) DETECTED A 06/16/21 10:46
[2021-06-20] MEDS: ACETAMINOPHEN 325 MG TABLET PO PRN ×2 (12:55→21:18)
[2021-06-20] MEDS: TEMAZEPAM 15 MG CAPSULE PO PRN (22:32)
[2021-06-21 05:00] LABS: BASOPHILS % (AUTO) 0.2 %; EOSINOPHILS # (AUTO) 0.1 10^3/uL (0.0-0.7); EOSINOPHILS % (AUTO) 1.9 %; HCT - HEMATOCRIT 31.3 % (37.0-47.0); HGB - HEMOGLOBIN 10.4 g/dL (12.0-16.0); LYMPHOCYTES # (AUTO) 0.5 10^3/uL (1.5-3.5); MEAN CORPUSCULAR HEMOGLOBIN 27.3 pg (27.0-31.0); MEAN CORPUSCULAR HGB CONC 33.2 g/dL (32.0-36.0); MEAN CORPUSCULAR VOLUME 82.2 fL (81.0-99.0); MEAN PLATELET VOLUME 9.8 fL (7.9-10.8); MONOCYTES # (AUTO) 0.2 10^3/uL (0.0-1.0); MONOCYTES % (AUTO) 3.7 %; NEUTROPHILS # (AUTO) 3.5 10^3/uL (1.5-6.6); NEUTROPHILS % (AUTO) 82.7 %; PLT - PLATELET COUNT 212 10^3/uL (130-450); RED BLOOD COUNT 3.81 10^6/uL (4.20-5.40); RED CELL DISTRIBUTION WIDTH 15.1 % (12.0-15.0); WHITE BLOOD COUNT 4.3 x10^3/uL (4.8-10.8)
[2021-06-21 05:09] LABS: CALCIUM 7.9 mg/dL (8.5-10.3); CREATININE 0.5 mg/dL (0.4-1.0); MAGNESIUM 2.2 mg/dL (1.7-2.8); POTASSIUM 3.9 mmol/L (3.5-5.0)
--- NOTE | 2021-06-21 08:25 | PROVIDER PROGRESS NOTE ---
Assessment/Plan - Problem List (1) Acute respiratory failure with hypoxia Assessment/Plan: Her resp status worsened over the past 2 days to needing higher FIO2 at 80% and 50L HiFlo Will continue to treat the underlying COVID pneumionia and give suppl O2, keeping sats > 90%. Self-proning was advised and ordered for when asleep. She is complying with proning and reports coughing and bringing up more sputum after she rolls back onto her back. We added IS and encourage OOB to chair and walk in room. She can get to bedside commode by herself. (2) Pneumonia due to COVID-19 virus Assessment/Plan: She was more lethergic and possibly weaker yesterday. Continue with suppl O2, IS, proning Mucinex, Remdesivir and Decadron and contact isolation. (3) Enteritis Assessment/Plan: Diarrhea resolved, but she has nausea Her diet was adjusted at admission due to GI upset from COVID. (4) Hyponatremia Assessment/Plan: With her GI upset from COVID and decreased po intake from fatigue and sleeping, her BUN/creat had risen today and she had new hyponatremia We started iv fluids Follow BMP daily (5) Hypoglycemia Assessment/Plan: Resolved. It was presumed to be from sleeping through breakfast yestwerday, but she was ordered to get fingerstick checks and Insulin ss coverage (by the previous Hospitalist), poss due to being on Decadron potentially causing hyperglycemia. Will cancel Insulin, so that no further hypoglycemia could occur. Will cancel fingerstick checks as she is running fasting glu close to 100 and has no Hx of glucose intolerance, is not overweight, was on no meds prior to admission. (6) Prerenal azotemia Assessment/Plan: Resolved. With her GI upset from COVID and decreased po intake from fatigue and sleeping, her BUN/creat had risen today and she had new hyponatremia. Follow BMP daily - Current Meds Current Meds: Current Medications Generic Name Dose Route Start Last Admin Trade Name Freq PRN Reason Stop Dose Admin Acetaminophen 650 mg 06/16/21 12:58 06/20/21 21:18 Acetaminophen 325 Mg Tablet PO 650 mg Q4HR PRN Administration Pain 1 to 4 Benzonatate 100 mg 06/16/21 16:24 06/18/21 09:24 Benzonatate 100 Mg Capsule PO 100 mg TID PRN Administration Cough Cholecalciferol 50 mcg 06/19/21 09:00 06/20/21 08:25 Cholecalciferol 25 Mcg Tablet PO 50 mcg DAILY STONEY Administration Dexamethasone 6 mg 06/16/21 14:00 06/20/21 08:30 Dexamethasone 4 Mg/Ml Vial IVP 6 mg DAILY STONEY Administration Enoxaparin Sodium 40 mg 06/17/21 09:00 06/20/21 08:30 Enoxaparin 40 Mg/0.4 Ml Syringe SUBQ 40 mg DAILY STONEY Administration Guaifenesin 600 mg 06/16/21 21:00 06/20/21 21:19 Guaifenesin 600 Mg Tablet PO 600 mg BID STONEY Administration Ondansetron HCl 4 mg 06/16/21 12:58 06/18/21 21:13 Ondansetron Odt 4 Mg Tablet TL 4 mg Q6HR PRN Administration Nausea / Vomiting Saccharomyces Boulardii 250 mg 06/18/21 17:00 06/20/21 17:06 Saccharomyces Boulardii 250 Mg Capsule PO 250 mg BIDWM STONEY Administration Sodium Chloride 10 ml 06/16/21 17:00 06/20/21 22:32 Sodium Chloride Flush 0.9% 10 Ml Syringe IVP 10 ml 0100,0900,1700 STONEY Administration Temazepam 15 mg 06/20/21 21:38 06/20/21 22:32 Temazepam 15 Mg Capsule PO 15 mg QPM PRN Administration Insomnia - Lab Result Fish Bone Diagrams: 06/21/21 04:47 06/21/21 04:47 - Additional Planning My Orders: My Active Orders 06/21/21 08:18 IS [Incentive Spirometry - RT] [RC] TID 06/21/21 08:21 Miscellaenous Nursing Order [RC] QSHIFT 06/21/21 09:00 Ns W/20 Meq KCl [Normal Saline 0.9% W/20 Meq KCl] 1,000 ml IV 60 mls/hr Subjective - Subjective Patient Reports: Cough (and bringing up sputum), Nausea (but diarrhea has stoped), Other (Has "burning eyes".) Objective Vital Signs: Vital Signs - 24 hr 06/20/21 06/20/21 06/20/21 12:26 15:10 16:47 Temperature 37.4 C 36.5 C Heart Rate [ 72 64 Monitoring electrodes] Respiratory 28 H 20 25 H Rate Blood Pressure 81/55 L 80/50 L [Right Brachial artery] O2 Saturation 94 97 92 06/20/21 06/20/21 06/21/21 21:00 22:36 02:20 Temperature 36.9 C 36.6 C Heart Rate [ 67 62 55 L Monitoring electrodes] Respiratory 27 H 18 24 Rate Blood Pressure 99/61 90/52 L 89/56 L [Right Brachial artery] O2 Saturation 97 95 95 06/21/21 06/21/21 06:00 08:14 Temperature 36.7 C Heart Rate [ 63 74 Monitoring electrodes] Respiratory 20 33 H Rate Blood Pressure 103/59 L 81/50 L [Right Brachial artery] O2 Saturation 98 88 L Oxygen O2 Source [facility] I&O (Last 24 Hrs): Intake and Output Totals x24h 06/19/21 06/20/21 06/21/21 23:59 23:59 23:59 Intake Total 2116 2040 1100 Output Total 2650 2475 900 Balance -534 -435 200 General: Alert, Mild distress (from eyes "burning") HEENT: Other (sclerae red (injected)) Neck: Supple, No JVD Neuro: Alert, Non Focal Cardiovascular: Regular rate Respiratory: Other (Diminished) Abdomen: Soft Extremities: No edema, No tenderness/swelling - Results Results: Laboratory Results WBC 4.3 x10^3/uL (4.8-10.8) L 06/21/21 04:47 RBC 3.81 10^6/uL (4.20-5.40) L 06/21/21 04:47 Hgb 10.4 g/dL (12.0-16.0) L 06/21/21 04:47 Hct 31.3 % (37.0-47.0) L 06/21/21 04:47 MCV 82.2 fL (81.0-99.0) 06/21/21 04:47 MCH 27.3 pg (27.0-31.0) 06/21/21 04:47 MCHC 33.2 g/dL (32.0-36.0) 06/21/21 04:47 RDW 15.1 % (12.0-15.0) H 06/21/21 04:47 Plt Count 212 10^3/uL (130-450) 06/21/21 04:47 MPV 9.8 fL (7.9-10.8) 06/21/21 04:47 Neut # (Auto) 3.5 10^3/uL (1.5-6.6) 06/21/21 04:47 Lymph # (Auto) 0.5 10^3/uL (1.5-3.5) L 06/21/21 04:47 [place] # (Auto) 0.2 10^3/uL (0.0-1.0) 06/21/21 04:47 Eos # (Auto) 0.1 10^3/uL (0.0-0.7) 06/21/21 04:47 Baso # (Auto) 0.0 10^3/uL (0.0-0.1) 06/21/21 04:47 Absolute Nucleated RBC 0.00 x10^3/uL 06/21/21 04:47 Nucleated RBC % 0.0 /100WBC 06/21/21 04:47 Sodium 132 mmol/L (135-145) L 06/21/21 04:47 Potassium 3.9 mmol/L (3.5-5.0) 06/21/21 04:47 Chloride 98 mmol/L (101-111) L 06/21/21 04:47 Carbon Dioxide 25 mmol/L (21-32) 06/21/21 04:47 Anion Gap 9.0 (6-13) 06/21/21 04:47 BUN 19 mg/dL (6-20) 06/21/21 04:47 Creatinine 0.5 mg/dL (0.4-1.0) 06/21/21 04:47 Estimated GFR (MDRD) 126 (>89) 06/21/21 04:47 Glucose 100 mg/dL (70-100) 06/21/21 04:47 POC Whole Bld Glucose 96 mg/dL (70 - 100) 06/21/21 08:09 Lactic Acid 1.5 mmol/L (0.5-2.2) 06/16/21 10:53 Calcium 7.9 mg/dL (8.5-10.3) L 06/21/21 04:47 Magnesium 2.2 mg/dL (1.7-2.8) 06/21/21 04:47 Total Bilirubin 0.6 mg/dL (0.2-1.0) 06/16/21 10:45 AST 47 IU/L (10-42) H 06/16/21 10:45 ALT 16 IU/L (10-60) 06/16/21 10:45 Alkaline Phosphatase 53 IU/L (42-121) 06/16/21 10:45 Total Protein 7.8 g/dL (6.7-8.2) 06/16/21 10:45 Albumin 3.3 g/dL (3.2-5.5) 06/16/21 10:45 Globulin 4.5 g/dL (2.1-4.2) H 06/16/21 10:45 Albumin/Globulin Ratio 0.7 (1.0-2.2) L 06/16/21 10:45 25-OH Vitamin D Total 51 ng/mL (30-100) 06/18/21 14:54 Urine Color DARK YELLOW 06/16/21 11:21 Urine Clarity CLEAR (CLEAR) 06/16/21 11:21 Urine pH 6.0 PH (5.0-7.5) 06/16/21 11:21 Ur Specific [place] 1.025 (1.002-1.030) 06/16/21 11:21 Urine Protein 30 mg/dL (NEGATIVE) H 06/16/21 11:21 Urine Glucose (UA) NEGATIVE mg/dL (NEGATIVE) 06/16/21 11:21 Urine Ketones NEGATIVE mg/dL (NEGATIVE) 06/16/21 11:21 Urine Occult Blood TRACE-INTA (NEGATIVE) 06/16/21 11:21 Urine Nitrite NEGATIVE (NEGATIVE) 06/16/21 11:21 Urine Bilirubin NEGATIVE (NEGATIVE) 06/16/21 11:21 Urine Urobilinogen 0.2 (NORMAL) E.U./dL (NORMAL) 06/16/21 11:21 Ur Leukocyte Esterase NEGATIVE (NEGATIVE) 06/16/21 11:21 Urine RBC 0-5 /HPF (0-5) 06/16/21 11:21 Urine WBC 0-3 /HPF (0-5) 06/16/21 11:21 Ur Squamous Epith Cells RARE Squamous (<= Few) 06/16/21 11:21 Amorphous Sediment Few /LPF 06/16/21 11:21 Urine Bacteria Few /HPF (None Seen) 06/16/21 11:21 Urine Casts 0-2 Hyaline Casts /LPF 06/16/21 11:21 Urine Mucus Few Strands 06/16/21 11:21 Urine Culture Comments NOT INDICATED 06/16/21 11:21 Nasal Adenovirus (PCR) NOT DETECTED 06/16/21 10:46 Nasal B. parapertussis DNA (PCR) NOT DETECTED 06/16/21 10:46 Nasal Coronavir 229E PCR NOT DETECTED 06/16/21 10:46 Nasal Coronavir HKU1 PCR NOT DETECTED 06/16/21 10:46 Nasal Coronavir NL63 PCR NOT DETECTED 06/16/21 10:46 Nasal Coronavir OC43 PCR NOT DETECTED 06/16/21 10:46 Nasal Enterovir/Rhinovir PCR NOT DETECTED 06/16/21 10:46 Nasal Influenza B PCR NOT DETECTED 06/16/21 10:46 Nasal Influenza A PCR NOT DETECTED 06/16/21 10:46 Nasal Parainfluen 1 PCR NOT DETECTED 06/16/21 10:46 Nasal Parainfluen 2 PCR NOT DETECTED 06/16/21 10:46 Nasal Parainfluen 3 PCR NOT DETECTED 06/16/21 10:46 Nasal Parainfluen 4 PCR NOT DETECTED 06/16/21 10:46 Nasal RSV (PCR) NOT DETECTED 06/16/21 10:46 Nasal Screen MRSA (PCR) NEGATIVE (NEGATIVE) 06/16/21 15:00 Nasal B.pertussis DNA PCR NOT DETECTED 06/16/21 10:46 Nasal C.pneumoniae (PCR) NOT DETECTED 06/16/21 10:46 [place] Human Metapneumo PCR NOT DETECTED 06/16/21 10:46 Nasal M.pneumoniae (PCR) NOT DETECTED 06/16/21 10:46 Nasal SARS-CoV-2 (PCR) DETECTED A 06/16/21 10:46
[2021-06-21] MEDS: SODIUM CHLORIDE FLUSH 0.9% 10 ML SYRINGE IVP SCH ×2 (10:03→17:19)
[2021-06-21] MEDS: NS W/20 MEQ KCL 1,000 ML IV SCH (10:04)
[2021-06-21] MEDS: ENOXAPARIN 40 MG/0.4 ML SYRINGE SUBQ SCH (10:06)
[2021-06-21] MEDS: ACETAMINOPHEN 325 MG TABLET PO PRN (10:06)
[2021-06-21] MEDS: CHOLECALCIFEROL 25 MCG TABLET PO SCH (10:06)
[2021-06-21] MEDS: SACCHAROMYCES BOULARDII 250 MG CAPSULE PO SCH ×2 (10:07→17:15)
[2021-06-21] MEDS: guaiFENesin 600 MG TABLET PO SCH ×2 (10:07→21:04)
[2021-06-21] MEDS: DEXAMETHASONE 4 MG/ML VIAL IVP SCH (10:10)
[2021-06-21] MEDS: ONDANSETRON ODT 4 MG TABLET TL PRN (11:22)
[2021-06-21] MEDS ORDERED: CARBOXYMETHYLCELLULOSE OPHTH DROPS EACHEYE PRN (11:32)
[2021-06-21] MEDS: TEMAZEPAM 15 MG CAPSULE PO PRN (21:04)
[2021-06-22] MEDS: NS W/20 MEQ KCL 1,000 ML IV SCH ×2 (02:03→18:25)
[2021-06-22] MEDS: SODIUM CHLORIDE FLUSH 0.9% 10 ML SYRINGE IVP SCH ×4 (02:03→21:36)
[2021-06-22 06:47] LABS: BASOPHILS % (AUTO) 0.2 %; EOSINOPHILS % (AUTO) 0.5 %; HCT - HEMATOCRIT 29.3 % (37.0-47.0); HGB - HEMOGLOBIN 9.8 g/dL (12.0-16.0); LYMPHOCYTES # (AUTO) 0.3 10^3/uL (1.5-3.5); LYMPHOCYTES % (AUTO) 7.2 %; MEAN CORPUSCULAR HEMOGLOBIN 27.6 pg (27.0-31.0); MEAN CORPUSCULAR HGB CONC 33.4 g/dL (32.0-36.0); MEAN CORPUSCULAR VOLUME 82.5 fL (81.0-99.0); MEAN PLATELET VOLUME 10.2 fL (7.9-10.8); MONOCYTES # (AUTO) 0.2 10^3/uL (0.0-1.0); NEUTROPHILS # (AUTO) 3.6 10^3/uL (1.5-6.6); NEUTROPHILS % (AUTO) 86.6 %; PLT - PLATELET COUNT 175 10^3/uL (130-450); RED BLOOD COUNT 3.55 10^6/uL (4.20-5.40); RED CELL DISTRIBUTION WIDTH 14.8 % (12.0-15.0); WHITE BLOOD COUNT 4.2 x10^3/uL (4.8-10.8)
[2021-06-22 06:58] LABS: CALCIUM 7.8 mg/dL (8.5-10.3); CREATININE 0.4 mg/dL (0.4-1.0); MAGNESIUM 2.2 mg/dL (1.7-2.8); POTASSIUM 4.1 mmol/L (3.5-5.0)
[2021-06-22] MEDS: CHOLECALCIFEROL 25 MCG TABLET PO SCH (08:39)
[2021-06-22] MEDS: SACCHAROMYCES BOULARDII 250 MG CAPSULE PO SCH ×2 (08:39→17:00)
[2021-06-22] MEDS: guaiFENesin 600 MG TABLET PO SCH ×2 (08:40→21:30)
[2021-06-22] MEDS: DEXAMETHASONE 4 MG/ML VIAL IVP SCH (08:40)
[2021-06-22] MEDS: ENOXAPARIN 40 MG/0.4 ML SYRINGE SUBQ SCH (08:45)
--- NOTE | 2021-06-22 13:41 | PROVIDER PROGRESS NOTE ---
Assessment/Plan - Problem List (1) Acute respiratory failure with hypoxia Assessment/Plan: Her resp status worsened over the past 3 days to needing higher FIO2 at 80% and 50L HiFlo Will continue to treat the underlying COVID pneumionia and give suppl O2, keeping sats > 90%. Self-proning was advised and ordered for when asleep. She is complying with proning and reports coughing and bringing up more sputum after she rolls back onto her back. We added IS and encourage OOB to chair and walk in room. She can get to bedside commode by herself. (2) Pneumonia due to COVID-19 virus Assessment/Plan: She is still fatigued but more able to get OPB to a chair. Continue with suppl O2, IS, proning, Mucinex, 5 day course of Remdesivir ordered and 10 day course of Decadron ordered and contact isolation. (3) Enteritis Assessment/Plan: Diarrhea resolved, but she had nausea yesterday Her diet was adjusted at admission due to GI upset from COVID. (4) Hyponatremia Assessment/Plan: With her GI upset from COVID and decreased po intake from fatigue and sleeping, her BUN/creat hyponatremia continues. Give iv NS fluids Follow BMP daily (5) Hypoglycemia Assessment/Plan: Resolved. It was presumed to be from sleeping through breakfast several days ago. Also, she was ordered to get fingerstick checks and Insulin ss coverage (by the previous Hospitalist), poss due to being on Decadron, with potential for causing hyperglycemia. We cancelled the Insulin, so that no further hypoglycemia could occur. Tiki cancelled fingerstick checks as she is running fasting glu close to 100 and has no Hx of glucose intolerance, is not overweight, was on no meds prior to admission. (6) Prerenal azotemia Assessment/Plan: With her GI upset from COVID and decreased po intake from fatigue and sleeping. Resolved with iv fluids Follow BMP daily - Current Meds Current Meds: Current Medications Generic Name Dose Route Start Last Admin Trade Name Freq PRN Reason Stop Dose Admin Acetaminophen 650 mg 06/16/21 12:58 06/21/21 10:06 Acetaminophen 325 Mg Tablet PO 650 mg Q4HR PRN Administration Pain 1 to 4 Benzonatate 100 mg 06/16/21 16:24 06/18/21 09:24 Benzonatate 100 Mg Capsule PO 100 mg TID PRN Administration Cough Cholecalciferol 50 mcg 06/19/21 09:00 06/22/21 08:39 Cholecalciferol 25 Mcg Tablet PO 50 mcg DAILY STONEY Administration Dexamethasone 6 mg 06/16/21 14:00 06/22/21 08:40 Dexamethasone 4 Mg/Ml Vial IVP 6 mg DAILY STONEY Administration Enoxaparin Sodium 40 mg 06/17/21 09:00 06/22/21 08:45 Enoxaparin 40 Mg/0.4 Ml Syringe SUBQ 40 mg DAILY STONEY Administration Guaifenesin 600 mg 06/16/21 21:00 06/22/21 08:40 Guaifenesin 600 Mg Tablet PO 600 mg BID STONEY Administration Potassium Chloride/Sodium Chloride 1,000 mls @ 60 mls/hr 06/21/21 09:00 06/22/21 13:00 Normal Saline 0.9% W/20 Meq Kcl IV 60 mls/hr .[id number] STONEY Infusion Ondansetron HCl 4 mg 06/16/21 12:58 06/21/21 11:22 Ondansetron Odt 4 Mg Tablet TL 4 mg Q6HR PRN Administration Nausea / Vomiting Saccharomyces Boulardii 250 mg 06/18/21 17:00 06/22/21 08:39 Saccharomyces Boulardii 250 Mg Capsule PO 250 mg BIDWM STONEY Administration Sodium Chloride 10 ml 06/16/21 17:00 06/22/21 08:40 Sodium Chloride Flush 0.9% 10 Ml Syringe IVP 10 ml 0100,0900,1700 STONEY Administration Temazepam 15 mg 06/20/21 21:38 06/21/21 21:04 Temazepam 15 Mg Capsule PO 15 mg QPM PRN Administration Insomnia - Lab Result Fish Bone Diagrams: 06/22/21 06:21 06/22/21 06:21 Objective Vital Signs: Vital Signs - 24 hr 06/21/21 06/21/21 06/22/21 15:38 21:00 00:52 Temperature 36.4 C L 36.4 C L Heart Rate [ 65 61 53 L Monitoring electrodes] Respiratory 26 H 26 H 17 Rate Blood Pressure 87/59 L 118/63 108/70 [Right Brachial artery] O2 Saturation 96 94 97 06/22/21 06/22/21 06/22/21 05:00 08:00 12:05 Temperature 36.0 C L 37.1 C Heart Rate [ 53 L 86 77 Monitoring electrodes] Respiratory 18 25 H 27 H Rate Blood Pressure 103/69 109/67 88/57 L [Right Brachial artery] O2 Saturation 94 95 92 06/22/21 13:31 Temperature Heart Rate [ 80 Monitoring electrodes] Respiratory 25 H Rate Blood Pressure [Right Brachial artery] O2 Saturation 94 Oxygen O2 Source [facility] I&O (Last 24 Hrs): Intake and Output Totals x24h 06/20/21 06/21/21 06/22/21 23:59 23:59 23:59 Intake Total 2040 4620 2196 Output Total 2475 4050 1800 Balance -435 570 396 General: Alert ((visit done remotely)) HEENT: Mucous membr. moist/pink Neck: Supple Neuro: Non Focal Cardiovascular: Regular rate Respiratory: Other (Wearing O2 via HiFlo) Abdomen: Soft Extremities: No edema - Results Results: Laboratory Results WBC 4.2 x10^3/uL (4.8-10.8) L 06/22/21 06:21 RBC 3.55 10^6/uL (4.20-5.40) L 06/22/21 06:21 Hgb 9.8 g/dL (12.0-16.0) L 06/22/21 06:21 Hct 29.3 % (37.0-47.0) L 06/22/21 06:21 MCV 82.5 fL (81.0-99.0) 06/22/21 06:21 MCH 27.6 pg (27.0-31.0) 06/22/21 06:21 MCHC 33.4 g/dL (32.0-36.0) 06/22/21 06:21 RDW 14.8 % (12.0-15.0) 06/22/21 06:21 Plt Count 175 10^3/uL (130-450) 06/22/21 06:21 MPV 10.2 fL (7.9-10.8) 06/22/21 06:21 Neut # (Auto) 3.6 10^3/uL (1.5-6.6) 06/22/21 06:21 Lymph # (Auto) 0.3 10^3/uL (1.5-3.5) L 06/22/21 06:21 [place] # (Auto) 0.2 10^3/uL (0.0-1.0) 06/22/21 06:21 Eos # (Auto) 0.0 10^3/uL (0.0-0.7) 06/22/21 06:21 Baso # (Auto) 0.0 10^3/uL (0.0-0.1) 06/22/21 06:21 Absolute Nucleated RBC 0.00 x10^3/uL 06/22/21 06:21 Nucleated RBC % 0.0 /100WBC 06/22/21 06:21 Sodium 133 mmol/L (135-145) L 06/22/21 06:21 Potassium 4.1 mmol/L (3.5-5.0) 06/22/21 06:21 Chloride 102 mmol/L (101-111) 06/22/21 06:21 Carbon Dioxide 22 mmol/L (21-32) 06/22/21 06:21 Anion Gap 9.0 (6-13) 06/22/21 06:21 BUN 17 mg/dL (6-20) 06/22/21 06:21 Creatinine 0.4 mg/dL (0.4-1.0) 06/22/21 06:21 Estimated GFR (MDRD) 163 (>89) 06/22/21 06:21 Glucose 122 mg/dL (70-100) H 06/22/21 06:21 POC Whole Bld Glucose 96 mg/dL (70 - 100) 06/21/21 08:09 Lactic Acid 1.5 mmol/L (0.5-2.2) 06/16/21 10:53 Calcium 7.8 mg/dL (8.5-10.3) L 06/22/21 06:21 Magnesium 2.2 mg/dL (1.7-2.8) 06/22/21 06:21 Total Bilirubin 0.6 mg/dL (0.2-1.0) 06/16/21 10:45 AST 47 IU/L (10-42) H 06/16/21 10:45 ALT 16 IU/L (10-60) 06/16/21 10:45 Alkaline Phosphatase 53 IU/L (42-121) 06/16/21 10:45 Total Protein 7.8 g/dL (6.7-8.2) 06/16/21 10:45 Albumin 3.3 g/dL (3.2-5.5) 06/16/21 10:45 Globulin 4.5 g/dL (2.1-4.2) H 06/16/21 10:45 Albumin/Globulin Ratio 0.7 (1.0-2.2) L 06/16/21 10:45 25-OH Vitamin D Total 51 ng/mL (30-100) 06/18/21 14:54 Urine Color DARK YELLOW 06/16/21 11:21 Urine Clarity CLEAR (CLEAR) 06/16/21 11:21 Urine pH 6.0 PH (5.0-7.5) 06/16/21 11:21 Ur Specific [place] 1.025 (1.002-1.030) 06/16/21 11:21 Urine Protein 30 mg/dL (NEGATIVE) H 06/16/21 11:21 Urine Glucose (UA) NEGATIVE mg/dL (NEGATIVE) 06/16/21 11:21 Urine Ketones NEGATIVE mg/dL (NEGATIVE) 06/16/21 11:21 Urine Occult Blood TRACE-INTA (NEGATIVE) 06/16/21 11:21 Urine Nitrite NEGATIVE (NEGATIVE) 06/16/21 11:21 Urine Bilirubin NEGATIVE (NEGATIVE) 06/16/21 11:21 Urine Urobilinogen 0.2 (NORMAL) E.U./dL (NORMAL) 06/16/21 11:21 Ur Leukocyte Esterase NEGATIVE (NEGATIVE) 06/16/21 11:21 Urine RBC 0-5 /HPF (0-5) 06/16/21 11:21 Urine WBC 0-3 /HPF (0-5) 06/16/21 11:21 Ur Squamous Epith Cells RARE Squamous (<= Few) 06/16/21 11:21 Amorphous Sediment Few /LPF 06/16/21 11:21 Urine Bacteria Few /HPF (None Seen) 06/16/21 11:21 Urine Casts 0-2 Hyaline Casts /LPF 06/16/21 11:21 Urine Mucus Few Strands 06/16/21 11:21 Urine Culture Comments NOT INDICATED 06/16/21 11:21 Nasal Adenovirus (PCR) NOT DETECTED 06/16/21 10:46 Nasal B. parapertussis DNA (PCR) NOT DETECTED 06/16/21 10:46 Nasal Coronavir 229E PCR NOT DETECTED 06/16/21 10:46 Nasal Coronavir HKU1 PCR NOT DETECTED 06/16/21 10:46 Nasal Coronavir NL63 PCR NOT DETECTED 06/16/21 10:46 Nasal Coronavir OC43 PCR NOT DETECTED 06/16/21 10:46 Nasal Enterovir/Rhinovir PCR NOT DETECTED 06/16/21 10:46 Nasal Influenza B PCR NOT DETECTED 06/16/21 10:46 Nasal Influenza A PCR NOT DETECTED 06/16/21 10:46 Nasal Parainfluen 1 PCR NOT DETECTED 06/16/21 10:46 Nasal Parainfluen 2 PCR NOT DETECTED 06/16/21 10:46 Nasal Parainfluen 3 PCR NOT DETECTED 06/16/21 10:46 Nasal Parainfluen 4 PCR NOT DETECTED 06/16/21 10:46 Nasal RSV (PCR) NOT DETECTED 06/16/21 10:46 Nasal Screen MRSA (PCR) NEGATIVE (NEGATIVE) 06/16/21 15:00 Nasal B.pertussis DNA PCR NOT DETECTED 06/16/21 10:46 Nasal C.pneumoniae (PCR) NOT DETECTED 06/16/21 10:46 Maxwell Human Metapneumo PCR NOT DETECTED 06/16/21 10:46 Nasal M.pneumoniae (PCR) NOT DETECTED 06/16/21 10:46 Nasal SARS-CoV-2 (PCR) DETECTED A 06/16/21 10:46
[2021-06-22] MEDS: TEMAZEPAM 15 MG CAPSULE PO PRN (21:31)
[2021-06-23 04:38] LABS: BASOPHILS % (AUTO) 0.2 %; EOSINOPHILS % (AUTO) 0.4 %; HCT - HEMATOCRIT 30.1 % (37.0-47.0); LYMPHOCYTES # (AUTO) 0.5 10^3/uL (1.5-3.5); LYMPHOCYTES % (AUTO) 8.4 %; MEAN CORPUSCULAR HGB CONC 33.2 g/dL (32.0-36.0); MEAN CORPUSCULAR VOLUME 81.4 fL (81.0-99.0); MEAN PLATELET VOLUME 10.3 fL (7.9-10.8); MONOCYTES # (AUTO) 0.3 10^3/uL (0.0-1.0); MONOCYTES % (AUTO) 6.1 %; NEUTROPHILS # (AUTO) 4.6 10^3/uL (1.5-6.6); NEUTROPHILS % (AUTO) 84.5 %; PLT - PLATELET COUNT 175 10^3/uL (130-450); RED CELL DISTRIBUTION WIDTH 14.9 % (12.0-15.0); WHITE BLOOD COUNT 5.4 x10^3/uL (4.8-10.8)
[2021-06-23 04:47] LABS: CREATININE 0.5 mg/dL (0.4-1.0); MAGNESIUM 2.1 mg/dL (1.7-2.8); POTASSIUM 4.2 mmol/L (3.5-5.0)
[2021-06-23] MEDS: SACCHAROMYCES BOULARDII 250 MG CAPSULE PO SCH ×2 (08:34→16:58)
[2021-06-23] MEDS: guaiFENesin 600 MG TABLET PO SCH ×2 (08:35→20:48)
[2021-06-23] MEDS: DEXAMETHASONE 4 MG/ML VIAL IVP SCH (08:35)
[2021-06-23] MEDS: SODIUM CHLORIDE FLUSH 0.9% 10 ML SYRINGE IVP SCH ×2 (08:35→16:59)
[2021-06-23] MEDS: BENZOCAINE/MENTHOL LOZENGE MM PRN ×2 (08:35→16:59)
[2021-06-23] MEDS: CHOLECALCIFEROL 25 MCG TABLET PO SCH (08:35)
[2021-06-23] MEDS: ENOXAPARIN 40 MG/0.4 ML SYRINGE SUBQ SCH (08:35)
[2021-06-23] MEDS: NS W/20 MEQ KCL 1,000 ML IV SCH (09:50)
--- NOTE | 2021-06-23 11:01 | PROVIDER PROGRESS NOTE ---
Assessment/Plan - Problem List (1) Acute respiratory failure with hypoxia Assessment/Plan: Her resp status has turned the corner: FIO2 was at 80% and today down to 50% on an oximizer, and yesterday's 50L via HiFlo is down to oximizer at 12L of O2. Will continue to treat the underlying COVID pneumionia and give suppl O2, keeping sats > 90%. Self-proning was advised and ordered for when asleep. She is complying with proning and reports coughing and bringing up more sputum after she rolls back onto her back. She is doing IS and OOB to chair, buit gets SOB and desturates when walks in room. She can get to bedside commode by herself. (2) Pneumonia due to COVID-19 virus Assessment/Plan: She is less fatigued today, she reports Continue with suppl O2, IS, proning, Mucinex, 5 day course of Remdesivir (completed yesterday) and 10 day course of Decadron ordered and continue contact isolation. (3) Hyponatremia Assessment/Plan: Resolved after iv NS fluids (4) Hypoglycemia Assessment/Plan: Resolved (5) Prerenal azotemia Assessment/Plan: Resolved (6) Enteritis Assessment/Plan: Resolved, no nausea and no diarrhea - Current Meds Current Meds: Current Medications Generic Name Dose Route Start Last Admin Trade Name Freq PRN Reason Stop Dose Admin Acetaminophen 650 mg 06/16/21 12:58 06/21/21 10:06 Acetaminophen 325 Mg Tablet PO 650 mg Q4HR PRN Administration Pain 1 to 4 Benzonatate 100 mg 06/16/21 16:24 06/18/21 09:24 Benzonatate 100 Mg Capsule PO 100 mg TID PRN Administration Cough Cholecalciferol 50 mcg 06/19/21 09:00 06/23/21 08:35 Cholecalciferol 25 Mcg Tablet PO 50 mcg DAILY STONEY Administration Dexamethasone 6 mg 06/16/21 14:00 06/23/21 08:35 Dexamethasone 4 Mg/Ml Vial IVP 6 mg DAILY STONEY Administration Enoxaparin Sodium 40 mg 06/17/21 09:00 06/23/21 08:35 Enoxaparin 40 Mg/0.4 Ml Syringe SUBQ 40 mg DAILY STONEY Administration Guaifenesin 600 mg 06/16/21 21:00 06/23/21 08:35 Guaifenesin 600 Mg Tablet PO 600 mg BID STONEY Administration Potassium Chloride/Sodium Chloride 1,000 mls @ 60 mls/hr 06/21/21 09:00 06/23/21 09:50 Normal Saline 0.9% W/20 Meq Kcl IV 60 mls/hr .[id number] STONEY Administration Ondansetron HCl 4 mg 06/16/21 12:58 06/21/21 11:22 Ondansetron Odt 4 Mg Tablet TL 4 mg Q6HR PRN Administration Nausea / Vomiting Saccharomyces Boulardii 250 mg 06/18/21 17:00 06/23/21 08:34 Saccharomyces Boulardii 250 Mg Capsule PO 250 mg BIDWM STONEY Administration Sodium Chloride 10 ml 06/16/21 17:00 06/23/21 08:35 Sodium Chloride Flush 0.9% 10 Ml Syringe IVP 10 ml 0100,0900,1700 STONEY Administration Temazepam 15 mg 06/20/21 21:38 06/22/21 21:31 Temazepam 15 Mg Capsule PO 15 mg QPM PRN Administration Insomnia Throat Lozenges 1 lozenge 06/23/21 08:23 06/23/21 08:35 Benzocaine/Menthol Lozenge MM 1 lozenge Q2HR PRN Administration Throat pain - Lab Result Fish Bone Diagrams: 06/23/21 04:27 06/23/21 04:27 - Additional Planning My Orders: My Active Orders 06/23/21 08:23 Benzocaine/Menthol [Cepacol] 1 lozenge MM Q2HR PRN Subjective - Subjective Patient Reports: Feeling Better, Shortness of Breath (desats when she moves or gets out of bed) Objective Vital Signs: Vital Signs - 24 hr 06/22/21 06/22/21 06/22/21 12:05 13:31 15:52 Temperature 37.1 C 36.5 C Heart Rate [ 77 80 76 Monitoring electrodes] Respiratory 27 H 25 H 21 Rate Blood Pressure 88/57 L 92/58 L [Right Brachial artery] O2 Saturation 92 94 94 06/22/21 06/23/21 06/23/21 21:00 01:00 05:00 Temperature 36.8 C 37.0 C Heart Rate [ 76 55 L 75 Monitoring electrodes] Respiratory 28 H 20 19 Rate Blood Pressure 110/71 126/77 97/63 [Right Brachial artery] O2 Saturation 92 91 L 91 L 06/23/21 06/23/21 08:06 08:15 Temperature 36.8 C Heart Rate [ 85 78 Monitoring electrodes] Respiratory 37 H 22 Rate Blood Pressure 110/72 [Right Brachial artery] O2 Saturation 92 94 Oxygen O2 Source [facility] I&O (Last 24 Hrs): Intake and Output Totals x24h 06/21/21 06/22/21 06/23/21 23:59 23:59 23:59 Intake Total 4620 4210 1765 Output Total 4050 4450 1750 Balance 570 -240 15 General: Alert, Oriented x3 HEENT: Mucous membr. moist/pink, Other (sclerae injected) Neck: Supple, No JVD Neuro: Alert, Non Focal Cardiovascular: Regular rate, No murmurs Respiratory: Rales (fine left base Rales, coarse right base rales) Abdomen: Normal bowel sounds, Soft, No tenderness Extremities: No edema, No tenderness/swelling - Results Results: Laboratory Results WBC 5.4 x10^3/uL (4.8-10.8) 06/23/21 04:27 RBC 3.70 10^6/uL (4.20-5.40) L 06/23/21 04:27 Hgb 10.0 g/dL (12.0-16.0) L 06/23/21 04:27 Hct 30.1 % (37.0-47.0) L 06/23/21 04:27 MCV 81.4 fL (81.0-99.0) 06/23/21 04:27 MCH 27.0 pg (27.0-31.0) 06/23/21 04:27 MCHC 33.2 g/dL (32.0-36.0) 06/23/21 04:27 RDW 14.9 % (12.0-15.0) 06/23/21 04:27 Plt Count 175 10^3/uL (130-450) 06/23/21 04:27 MPV 10.3 fL (7.9-10.8) 06/23/21 04:27 Neut # (Auto) 4.6 10^3/uL (1.5-6.6) 06/23/21 04:27 Lymph # (Auto) 0.5 10^3/uL (1.5-3.5) L 06/23/21 04:27 [place] # (Auto) 0.3 10^3/uL (0.0-1.0) 06/23/21 04:27 Eos # (Auto) 0.0 10^3/uL (0.0-0.7) 06/23/21 04:27 Baso # (Auto) 0.0 10^3/uL (0.0-0.1) 06/23/21 04:27 Absolute Nucleated RBC 0.00 x10^3/uL 06/23/21 04:27 Nucleated RBC % 0.0 /100WBC 06/23/21 04:27 Sodium 135 mmol/L (135-145) 06/23/21 04:27 Potassium 4.2 mmol/L (3.5-5.0) 06/23/21 04:27 Chloride 102 mmol/L (101-111) 06/23/21 04:27 Carbon Dioxide 24 mmol/L (21-32) 06/23/21 04:27 Anion Gap 9.0 (6-13) 06/23/21 04:27 BUN 17 mg/dL (6-20) 06/23/21 04:27 Creatinine 0.5 mg/dL (0.4-1.0) 06/23/21 04:27 Estimated GFR (MDRD) 126 (>89) 06/23/21 04:27 Glucose 115 mg/dL (70-100) H 06/23/21 04:27 POC Whole Bld Glucose 96 mg/dL (70 - 100) 06/21/21 08:09 Lactic Acid 1.5 mmol/L (0.5-2.2) 06/16/21 10:53 Calcium 8.0 mg/dL (8.5-10.3) L 06/23/21 04:27 Magnesium 2.1 mg/dL (1.7-2.8) 06/23/21 04:27 Total Bilirubin 0.6 mg/dL (0.2-1.0) 06/16/21 10:45 AST 47 IU/L (10-42) H 06/16/21 10:45 ALT 16 IU/L (10-60) 06/16/21 10:45 Alkaline Phosphatase 53 IU/L (42-121) 06/16/21 10:45 Total Protein 7.8 g/dL (6.7-8.2) 06/16/21 10:45 Albumin 3.3 g/dL (3.2-5.5) 06/16/21 10:45 Globulin 4.5 g/dL (2.1-4.2) H 06/16/21 10:45 Albumin/Globulin Ratio 0.7 (1.0-2.2) L 06/16/21 10:45 25-OH Vitamin D Total 51 ng/mL (30-100) 06/18/21 14:54 Urine Color DARK YELLOW 06/16/21 11:21 Urine Clarity CLEAR (CLEAR) 06/16/21 11:21 Urine pH 6.0 PH (5.0-7.5) 06/16/21 11:21 Ur Specific [place] 1.025 (1.002-1.030) 06/16/21 11:21 Urine Protein 30 mg/dL (NEGATIVE) H 06/16/21 11:21 Urine Glucose (UA) NEGATIVE mg/dL (NEGATIVE) 06/16/21 11:21 Urine Ketones NEGATIVE mg/dL (NEGATIVE) 06/16/21 11:21 Urine Occult Blood TRACE-INTA (NEGATIVE) 06/16/21 11:21 Urine Nitrite NEGATIVE (NEGATIVE) 06/16/21 11:21 Urine Bilirubin NEGATIVE (NEGATIVE) 06/16/21 11:21 Urine Urobilinogen 0.2 (NORMAL) E.U./dL (NORMAL) 06/16/21 11:21 Ur Leukocyte Esterase NEGATIVE (NEGATIVE) 06/16/21 11:21 Urine RBC 0-5 /HPF (0-5) 06/16/21 11:21 Urine WBC 0-3 /HPF (0-5) 06/16/21 11:21 Ur Squamous Epith Cells RARE Squamous (<= Few) 06/16/21 11:21 Amorphous Sediment Few /LPF 06/16/21 11:21 Urine Bacteria Few /HPF (None Seen) 06/16/21 11:21 Urine Casts 0-2 Hyaline Casts /LPF 06/16/21 11:21 Urine Mucus Few Strands 06/16/21 11:21 Urine Culture Comments NOT INDICATED 06/16/21 11:21 Nasal Adenovirus (PCR) NOT DETECTED 06/16/21 10:46 Nasal B. parapertussis DNA (PCR) NOT DETECTED 06/16/21 10:46 Nasal Coronavir 229E PCR NOT DETECTED 06/16/21 10:46 Nasal Coronavir HKU1 PCR NOT DETECTED 06/16/21 10:46 Nasal Coronavir NL63 PCR NOT DETECTED 06/16/21 10:46 Nasal Coronavir OC43 PCR NOT DETECTED 06/16/21 10:46 Nasal Enterovir/Rhinovir PCR NOT DETECTED 06/16/21 10:46 Nasal Influenza B PCR NOT DETECTED 06/16/21 10:46 Nasal Influenza A PCR NOT DETECTED 06/16/21 10:46 Nasal Parainfluen 1 PCR NOT DETECTED 06/16/21 10:46 Nasal Parainfluen 2 PCR NOT DETECTED 06/16/21 10:46 Nasal Parainfluen 3 PCR NOT DETECTED 06/16/21 10:46 Nasal Parainfluen 4 PCR NOT DETECTED 06/16/21 10:46 Nasal RSV (PCR) NOT DETECTED 06/16/21 10:46 Nasal Screen MRSA (PCR) NEGATIVE (NEGATIVE) 06/16/21 15:00 Nasal B.pertussis DNA PCR NOT DETECTED 06/16/21 10:46 Nasal C.pneumoniae (PCR) NOT DETECTED 06/16/21 10:46 [place] Human Metapneumo PCR NOT DETECTED 06/16/21 10:46 Nasal M.pneumoniae (PCR) NOT DETECTED 06/16/21 10:46 Nasal SARS-CoV-2 (PCR) DETECTED A 06/16/21 10:46
[2021-06-23] MEDS: TEMAZEPAM 15 MG CAPSULE PO PRN (22:07)
[2021-06-23] MEDS: ACETAMINOPHEN 325 MG TABLET PO PRN (22:10)
[2021-06-24] MEDS: NS W/20 MEQ KCL 1,000 ML IV SCH ×2 (02:31→16:10)
[2021-06-24] MEDS: SODIUM CHLORIDE FLUSH 0.9% 10 ML SYRINGE IVP SCH ×3 (03:48→16:09)
[2021-06-24] MEDS: ACETAMINOPHEN 325 MG TABLET PO PRN ×3 (08:22→22:03)
[2021-06-24] MEDS: DEXAMETHASONE 4 MG/ML VIAL IVP SCH (08:23)
[2021-06-24] MEDS: SACCHAROMYCES BOULARDII 250 MG CAPSULE PO SCH ×2 (08:23→16:08)
[2021-06-24] MEDS: CHOLECALCIFEROL 25 MCG TABLET PO SCH (08:23)
[2021-06-24] MEDS: guaiFENesin 600 MG TABLET PO SCH ×2 (08:23→20:58)
[2021-06-24] MEDS: ENOXAPARIN 40 MG/0.4 ML SYRINGE SUBQ SCH (08:24)
--- NOTE | 2021-06-24 12:07 | PROVIDER PROGRESS NOTE ---
Assessment/Plan - Problem List (1) Acute respiratory failure with hypoxia Assessment/Plan: Her resp status turned the corner yesterday: FIO2 was on an oximizer, then via HiFlo, and has been down to an oximizer at 12L of O2 yesterday and now down to needing oximizer at 8L of O2. Will continue to treat the underlying COVID pneumionia and give suppl O2, keeping sats > 90%. Self-proning was advised and ordered for when asleep. She is complying with proning and reports coughing also and bringing up more sputum after she rolls back onto her back. She is doing IS and OOB to chair, but gets SOB with activity in herb room. She can get to bedside commode by herself. (2) Pneumonia due to COVID-19 virus Assessment/Plan: She is less fatigued since yesterday Continue with suppl O2, IS, proning, Mucinex, 5 day course of Remdesivir was completed, and 10 day course of Decadron ordered and continue contact isolation. (3) Hyponatremia Assessment/Plan: Resolved after iv NS fluids (4) Hypoglycemia Assessment/Plan: Resolved after ss Insulin was stopped (it had been started when iv steroids begun, and she is not obese or a diabetic). (5) Prerenal azotemia Assessment/Plan: Resolved after several days of iv hydration. (6) Enteritis Assessment/Plan: Resolved, she had presented with COVID nausea and diarrhea - Current Meds Current Meds: Current Medications Generic Name Dose Route Start Last Admin Trade Name Freq PRN Reason Stop Dose Admin Acetaminophen 650 mg 06/16/21 12:58 06/24/21 08:22 Acetaminophen 325 Mg Tablet PO 650 mg Q4HR PRN Administration Pain 1 to 4 Benzonatate 100 mg 06/16/21 16:24 06/18/21 09:24 Benzonatate 100 Mg Capsule PO 100 mg TID PRN Administration Cough Cholecalciferol 50 mcg 06/19/21 09:00 06/24/21 08:23 Cholecalciferol 25 Mcg Tablet PO 50 mcg DAILY STONEY Administration Dexamethasone 6 mg 06/16/21 14:00 06/24/21 08:23 Dexamethasone 4 Mg/Ml Vial IVP 6 mg DAILY STONEY Administration Enoxaparin Sodium 40 mg 06/17/21 09:00 06/24/21 08:24 Enoxaparin 40 Mg/0.4 Ml Syringe SUBQ 40 mg DAILY STONEY Administration Guaifenesin 600 mg 06/16/21 21:00 06/24/21 08:23 Guaifenesin 600 Mg Tablet PO 600 mg BID STONEY Administration Potassium Chloride/Sodium Chloride 1,000 mls @ 60 mls/hr 06/21/21 09:00 06/24/21 02:31 Normal Saline 0.9% W/20 Meq Kcl IV 60 mls/hr .[id number] STONEY Administration Ondansetron HCl 4 mg 06/16/21 12:58 06/21/21 11:22 Ondansetron Odt 4 Mg Tablet TL 4 mg Q6HR PRN Administration Nausea / Vomiting Saccharomyces Boulardii 250 mg 06/18/21 17:00 06/24/21 08:23 Saccharomyces Boulardii 250 Mg Capsule PO 250 mg BIDWM STONEY Administration Sodium Chloride 10 ml 06/16/21 17:00 06/24/21 08:24 Sodium Chloride Flush 0.9% 10 Ml Syringe IVP 10 ml 0100,0900,1700 STONEY Administration Temazepam 15 mg 06/20/21 21:38 06/23/21 22:07 Temazepam 15 Mg Capsule PO 15 mg QPM PRN Administration Insomnia Throat Lozenges 1 lozenge 06/23/21 08:23 06/23/21 16:59 Benzocaine/Menthol Lozenge MM 1 lozenge Q2HR PRN Administration Throat pain - Lab Result Fish Bone Diagrams: 06/23/21 04:27 06/23/21 04:27 Subjective - Subjective Patient Reports: Resting Comfortably, No Complaints Nursing Reports: Other (O2 sats are slightly bnetter than yesterday, still needs an oximizer) Objective Vital Signs: Vital Signs - 24 hr 06/23/21 06/23/21 06/23/21 15:40 16:12 19:36 Temperature 36.6 C 36.6 C Heart Rate [ 82 71 Monitoring electrodes] Respiratory 25 H 25 H 28 H Rate Blood Pressure 103/67 93/49 L [Right Brachial artery] O2 Saturation 98 96 95 06/24/21 06/24/21 06/24/21 01:00 06:40 07:36 Temperature 36.7 C Heart Rate [ 51 L 61 60 Monitoring electrodes] Respiratory 19 22 20 Rate Blood Pressure 120/75 127/75 126/75 [Right Brachial artery] O2 Saturation 97 98 93 Oxygen O2 Source Oxymizer I&O (Last 24 Hrs): Intake and Output Totals x24h 06/22/21 06/23/21 06/24/21 23:59 23:59 23:59 Intake Total 4210 3985 2450 Output Total 4450 3950 750 Balance -269 23 5745 General: Alert (Visit done remotely), Oriented x3 HEENT: Mucous membr. moist/pink Neck: Supple Cardiovascular: Regular rate Respiratory: No respiratory distress (On O2 via oximizer) Abdomen: Soft Extremities: No edema - Results Results: Laboratory Results WBC 5.4 x10^3/uL (4.8-10.8) 06/23/21 04:27 RBC 3.70 10^6/uL (4.20-5.40) L 06/23/21 04:27 Hgb 10.0 g/dL (12.0-16.0) L 06/23/21 04:27 Hct 30.1 % (37.0-47.0) L 06/23/21 04:27 MCV 81.4 fL (81.0-99.0) 06/23/21 04:27 MCH 27.0 pg (27.0-31.0) 06/23/21 04:27 MCHC 33.2 g/dL (32.0-36.0) 06/23/21 04:27 RDW 14.9 % (12.0-15.0) 06/23/21 04:27 Plt Count 175 10^3/uL (130-450) 06/23/21 04:27 MPV 10.3 fL (7.9-10.8) 06/23/21 04:27 Neut # (Auto) 4.6 10^3/uL (1.5-6.6) 06/23/21 04:27 Lymph # (Auto) 0.5 10^3/uL (1.5-3.5) L 06/23/21 04:27 [place] # (Auto) 0.3 10^3/uL (0.0-1.0) 06/23/21 04:27 Eos # (Auto) 0.0 10^3/uL (0.0-0.7) 06/23/21 04:27 Baso # (Auto) 0.0 10^3/uL (0.0-0.1) 06/23/21 04:27 Absolute Nucleated RBC 0.00 x10^3/uL 06/23/21 04:27 Nucleated RBC % 0.0 /100WBC 06/23/21 04:27 Sodium 135 mmol/L (135-145) 06/23/21 04:27 Potassium 4.2 mmol/L (3.5-5.0) 06/23/21 04:27 Chloride 102 mmol/L (101-111) 06/23/21 04:27 Carbon Dioxide 24 mmol/L (21-32) 06/23/21 04:27 Anion Gap 9.0 (6-13) 06/23/21 04:27 BUN 17 mg/dL (6-20) 06/23/21 04:27 Creatinine 0.5 mg/dL (0.4-1.0) 06/23/21 04:27 Estimated GFR (MDRD) 126 (>89) 06/23/21 04:27 Glucose 115 mg/dL (70-100) H 06/23/21 04:27 POC Whole Bld Glucose 96 mg/dL (70 - 100) 06/21/21 08:09 Lactic Acid 1.5 mmol/L (0.5-2.2) 06/16/21 10:53 Calcium 8.0 mg/dL (8.5-10.3) L 06/23/21 04:27 Magnesium 2.1 mg/dL (1.7-2.8) 06/23/21 04:27 Total Bilirubin 0.6 mg/dL (0.2-1.0) 06/16/21 10:45 AST 47 IU/L (10-42) H 06/16/21 10:45 ALT 16 IU/L (10-60) 06/16/21 10:45 Alkaline Phosphatase 53 IU/L (42-121) 06/16/21 10:45 Total Protein 7.8 g/dL (6.7-8.2) 06/16/21 10:45 Albumin 3.3 g/dL (3.2-5.5) 06/16/21 10:45 Globulin 4.5 g/dL (2.1-4.2) H 06/16/21 10:45 Albumin/Globulin Ratio 0.7 (1.0-2.2) L 06/16/21 10:45 25-OH Vitamin D Total 51 ng/mL (30-100) 06/18/21 14:54 Urine Color DARK YELLOW 06/16/21 11:21 Urine Clarity CLEAR (CLEAR) 06/16/21 11:21 Urine pH 6.0 PH (5.0-7.5) 06/16/21 11:21 Ur Specific [place] 1.025 (1.002-1.030) 06/16/21 11:21 Urine Protein 30 mg/dL (NEGATIVE) H 06/16/21 11:21 Urine Glucose (UA) NEGATIVE mg/dL (NEGATIVE) 06/16/21 11:21 Urine Ketones NEGATIVE mg/dL (NEGATIVE) 06/16/21 11:21 Urine Occult Blood TRACE-INTA (NEGATIVE) 06/16/21 11:21 Urine Nitrite NEGATIVE (NEGATIVE) 06/16/21 11:21 Urine Bilirubin NEGATIVE (NEGATIVE) 06/16/21 11:21 Urine Urobilinogen 0.2 (NORMAL) E.U./dL (NORMAL) 06/16/21 11:21 Ur Leukocyte Esterase NEGATIVE (NEGATIVE) 06/16/21 11:21 Urine RBC 0-5 /HPF (0-5) 06/16/21 11:21 Urine WBC 0-3 /HPF (0-5) 06/16/21 11:21 Ur Squamous Epith Cells RARE Squamous (<= Few) 06/16/21 11:21 Amorphous Sediment Few /LPF 06/16/21 11:21 Urine Bacteria Few /HPF (None Seen) 06/16/21 11:21 Urine Casts 0-2 Hyaline Casts /LPF 06/16/21 11:21 Urine Mucus Few Strands 06/16/21 11:21 Urine Culture Comments NOT INDICATED 06/16/21 11:21 Nasal Adenovirus (PCR) NOT DETECTED 06/16/21 10:46 Nasal B. parapertussis DNA (PCR) NOT DETECTED 06/16/21 10:46 Nasal Coronavir 229E PCR NOT DETECTED 06/16/21 10:46 Nasal Coronavir HKU1 PCR NOT DETECTED 06/16/21 10:46 Nasal Coronavir NL63 PCR NOT DETECTED 06/16/21 10:46 Nasal Coronavir OC43 PCR NOT DETECTED 06/16/21 10:46 Nasal Enterovir/Rhinovir PCR NOT DETECTED 06/16/21 10:46 Nasal Influenza B PCR NOT DETECTED 06/16/21 10:46 Nasal Influenza A PCR NOT DETECTED 06/16/21 10:46 Nasal Parainfluen 1 PCR NOT DETECTED 06/16/21 10:46 Nasal Parainfluen 2 PCR NOT DETECTED 06/16/21 10:46 Nasal Parainfluen 3 PCR NOT DETECTED 06/16/21 10:46 Nasal Parainfluen 4 PCR NOT DETECTED 06/16/21 10:46 Nasal RSV (PCR) NOT DETECTED 06/16/21 10:46 Nasal Screen MRSA (PCR) NEGATIVE (NEGATIVE) 06/16/21 15:00 Nasal B.pertussis DNA PCR NOT DETECTED 06/16/21 10:46 Nasal C.pneumoniae (PCR) NOT DETECTED 06/16/21 10:46 [place] Human Metapneumo PCR NOT DETECTED 06/16/21 10:46 Nasal M.pneumoniae (PCR) NOT DETECTED 06/16/21 10:46 Nasal SARS-CoV-2 (PCR) DETECTED A 06/16/21 10:46
[2021-06-24] MEDS: TEMAZEPAM 15 MG CAPSULE PO PRN (22:03)
[2021-06-25] MEDS: SODIUM CHLORIDE FLUSH 0.9% 10 ML SYRINGE IVP SCH ×3 (00:59→16:48)
[2021-06-25 08:39] LABS: BASOPHILS % (AUTO) 0.1 %; EOSINOPHILS # (AUTO) 0.2 10^3/uL (0.0-0.7); HCT - HEMATOCRIT 32.2 % (37.0-47.0); HGB - HEMOGLOBIN 10.6 g/dL (12.0-16.0); LYMPHOCYTES # (AUTO) 1.1 10^3/uL (1.5-3.5); LYMPHOCYTES % (AUTO) 13.6 %; MEAN CORPUSCULAR HEMOGLOBIN 27.5 pg (27.0-31.0); MEAN CORPUSCULAR HGB CONC 32.9 g/dL (32.0-36.0); MEAN CORPUSCULAR VOLUME 83.4 fL (81.0-99.0); MEAN PLATELET VOLUME 10.3 fL (7.9-10.8); MONOCYTES # (AUTO) 0.3 10^3/uL (0.0-1.0); MONOCYTES % (AUTO) 3.3 %; NEUTROPHILS # (AUTO) 6.6 10^3/uL (1.5-6.6); NEUTROPHILS % (AUTO) 79.4 %; PLT - PLATELET COUNT 166 10^3/uL (130-450); RED BLOOD COUNT 3.86 10^6/uL (4.20-5.40); RED CELL DISTRIBUTION WIDTH 14.9 % (12.0-15.0); WHITE BLOOD COUNT 8.4 x10^3/uL (4.8-10.8)
[2021-06-25 08:48] LABS: CALCIUM 7.8 mg/dL (8.5-10.3); CREATININE 0.5 mg/dL (0.4-1.0); POTASSIUM 3.5 mmol/L (3.5-5.0)
[2021-06-25] MEDS: guaiFENesin 600 MG TABLET PO SCH ×2 (08:49→21:05)
[2021-06-25] MEDS: CHOLECALCIFEROL 25 MCG TABLET PO SCH (08:49)
[2021-06-25] MEDS: ENOXAPARIN 40 MG/0.4 ML SYRINGE SUBQ SCH (08:49)
[2021-06-25] MEDS: SACCHAROMYCES BOULARDII 250 MG CAPSULE PO SCH ×2 (08:49→16:47)
[2021-06-25] MEDS: BENZOCAINE/MENTHOL LOZENGE MM PRN (10:20)
--- NOTE | 2021-06-25 10:51 | PROVIDER PROGRESS NOTE ---
Assessment/Plan - Problem List (1) Acute respiratory failure with hypoxia Assessment/Plan: 06/25 improved. Patient had a 95% oxygen saturation on 5 L oxygen by nasal continue. Patient does not require high flow of oxygen. Patient does not show acute respiratory distress. Patient already finished remdesivir. We will continue supplemental oxygen as needed, continue finish Decatron. (2) Pneumonia due to COVID-19 virus Assessment/Plan: improved. Patient had a 95% oxygen saturation on 5 L oxygen by nasal continue. Patient does not require high flow of oxygen. Patient does not show acute respiratory distress. Continue with suppl O2, IS, proning, Mucinex, 5 day course of Remdesivir was completed, and 10 day course of Decadron ordered and continue contact isolation. (3) Hyponatremia Assessment/Plan: Na 132 on today, continue gentle IV of NS for prerenal azotenmia (4) Hypoglycemia Resolved (5) Prerenal azotemia Assessment/Plan: stable, keep hydration and continue very gently IVF (6) Enteritis Assessment/Plan: she had presented with COVID nausea and diarrhea before, now she resolved. - Current Meds Current Meds: Current Medications Generic Name Dose Route Start Last Admin Trade Name Freq PRN Reason Stop Dose Admin Acetaminophen 650 mg 06/16/21 12:58 06/24/21 22:03 Acetaminophen 325 Mg Tablet PO 650 mg Q4HR PRN Administration Pain 1 to 4 Benzonatate 100 mg 06/16/21 16:24 06/18/21 09:24 Benzonatate 100 Mg Capsule PO 100 mg TID PRN Administration Cough Cholecalciferol 50 mcg 06/19/21 09:00 06/25/21 08:49 Cholecalciferol 25 Mcg Tablet PO 50 mcg DAILY STONEY Administration Dexamethasone 6 mg 06/16/21 14:00 06/24/21 08:23 Dexamethasone 4 Mg/Ml Vial IVP 6 mg DAILY STONEY Administration Enoxaparin Sodium 40 mg 06/17/21 09:00 06/25/21 08:49 Enoxaparin 40 Mg/0.4 Ml Syringe SUBQ 40 mg DAILY STONEY Administration Guaifenesin 600 mg 06/16/21 21:00 06/25/21 08:49 Guaifenesin 600 Mg Tablet PO 600 mg BID STONEY Administration Potassium Chloride/Sodium Chloride 1,000 mls @ 60 mls/hr 06/21/21 09:00 06/25/21 08:45 Normal Saline 0.9% W/20 Meq Kcl IV Infused .[id number] STONEY Infusion Ondansetron HCl 4 mg 06/16/21 12:58 06/21/21 11:22 Ondansetron Odt 4 Mg Tablet TL 4 mg Q6HR PRN Administration Nausea / Vomiting Saccharomyces Boulardii 250 mg 06/18/21 17:00 06/25/21 08:49 Saccharomyces Boulardii 250 Mg Capsule PO 250 mg BIDWM STONEY Administration Sodium Chloride 10 ml 06/16/21 17:00 06/25/21 00:59 Sodium Chloride Flush 0.9% 10 Ml Syringe IVP Not Given 0100,0900,1700 STONEY Temazepam 15 mg 06/20/21 21:38 06/24/21 22:03 Temazepam 15 Mg Capsule PO 15 mg QPM PRN Administration Insomnia Throat Lozenges 1 lozenge 06/23/21 08:23 06/25/21 10:20 Benzocaine/Menthol Lozenge MM 1 lozenge Q2HR PRN Administration Throat pain - Lab Result Fish Bone Diagrams: 06/25/21 08:28 06/25/21 08:28 - Additional Planning My Orders: My Active Orders 06/26/21 05:00 BMP - BASIC METABOLIC PANEL [CHEM] DAILYLAB CBC - COMP BLD CT W/AUTO DIFF [HEME] DAILYLAB 06/27/21 05:00 BMP - BASIC METABOLIC PANEL [CHEM] DAILYLAB CBC - COMP BLD CT W/AUTO DIFF [HEME] DAILYLAB 06/28/21 05:00 BMP - BASIC METABOLIC PANEL [CHEM] DAILYLAB CBC - COMP BLD CT W/AUTO DIFF [HEME] DAILYLAB 06/29/21 05:00 BMP - BASIC METABOLIC PANEL [CHEM] DAILYLAB CBC - COMP BLD CT W/AUTO DIFF [HEME] DAILYLAB 06/30/21 05:00 BMP - BASIC METABOLIC PANEL [CHEM] DAILYLAB CBC - COMP BLD CT W/AUTO DIFF [HEME] DAILYLAB Subjective - Subjective Patient Reports: Feeling Better, Resting Comfortably Objective Vital Signs: Vital Signs - 24 hr 06/24/21 06/24/21 06/24/21 12:31 16:14 21:00 Temperature 97.8 C H 36.4 C L 37.2 C Heart Rate [ 71 65 63 Monitoring electrodes] Respiratory 24 22 20 Rate Blood Pressure 91/58 L 98/65 114/79 [Right Brachial artery] O2 Saturation 94 95 94 06/25/21 06/25/21 06/25/21 01:00 05:33 08:05 Temperature 36.5 C 37.3 C Heart Rate [ 64 61 69 Monitoring electrodes] Respiratory 17 20 23 Rate Blood Pressure 122/84 H 111/72 114/71 [Right Brachial artery] O2 Saturation 92 92 95 Oxygen O2 Source Nasal cannula I&O (Last 24 Hrs): Intake and Output Totals x24h 06/23/21 06/24/21 06/25/21 23:59 23:59 23:59 Intake Total 3985 3909 2014 Output Total 3950 2650 Balance 35 1259 2014 General: Alert, Oriented x3, Cooperative, No acute distress HEENT: Atraumatic Neck: Supple Lymphatic: no adenopathy Neuro: Alert, Non Focal, Oriented Times 3 Cardiovascular: Regular rate, Normal S1, Normal S2 Respiratory: Chest non-tender, No respiratory distress Abdomen: Normal bowel sounds, Soft Extremities: Normal pulses - Results Results: Laboratory Results WBC 8.4 x10^3/uL (4.8-10.8) 06/25/21 08:28 RBC 3.86 10^6/uL (4.20-5.40) L 06/25/21 08:28 Hgb 10.6 g/dL (12.0-16.0) L 06/25/21 08:28 Hct 32.2 % (37.0-47.0) L 06/25/21 08:28 MCV 83.4 fL (81.0-99.0) 06/25/21 08:28 MCH 27.5 pg (27.0-31.0) 06/25/21 08:28 MCHC 32.9 g/dL (32.0-36.0) 06/25/21 08:28 RDW 14.9 % (12.0-15.0) 06/25/21 08:28 Plt Count 166 10^3/uL (130-450) 06/25/21 08:28 MPV 10.3 fL (7.9-10.8) 06/25/21 08:28 Neut # (Auto) 6.6 10^3/uL (1.5-6.6) 06/25/21 08:28 Lymph # (Auto) 1.1 10^3/uL (1.5-3.5) L 06/25/21 08:28 [place] # (Auto) 0.3 10^3/uL (0.0-1.0) 06/25/21 08:28 Eos # (Auto) 0.2 10^3/uL (0.0-0.7) 06/25/21 08:28 Baso # (Auto) 0.0 10^3/uL (0.0-0.1) 06/25/21 08:28 Absolute Nucleated RBC 0.00 x10^3/uL 06/25/21 08:28 Nucleated RBC % 0.0 /100WBC 06/25/21 08:28 Sodium 132 mmol/L (135-145) L 06/25/21 08:28 Potassium 3.5 mmol/L (3.5-5.0) 06/25/21 08:28 Chloride 97 mmol/L (101-111) L 06/25/21 08:28 Carbon Dioxide 25 mmol/L (21-32) 06/25/21 08:28 Anion Gap 10.0 (6-13) 06/25/21 08:28 BUN 12 mg/dL (6-20) 06/25/21 08:28 Creatinine 0.5 mg/dL (0.4-1.0) 06/25/21 08:28 Estimated GFR (MDRD) 126 (>89) 06/25/21 08:28 Glucose 102 mg/dL (70-100) H 06/25/21 08:28 POC Whole Bld Glucose 96 mg/dL (70 - 100) 06/21/21 08:09 Lactic Acid 1.5 mmol/L (0.5-2.2) 06/16/21 10:53 Calcium 7.8 mg/dL (8.5-10.3) L 06/25/21 08:28 Magnesium 2.1 mg/dL (1.7-2.8) 06/23/21 04:27 Total Bilirubin 0.6 mg/dL (0.2-1.0) 06/16/21 10:45 AST 47 IU/L (10-42) H 06/16/21 10:45 ALT 16 IU/L (10-60) 06/16/21 10:45 Alkaline Phosphatase 53 IU/L (42-121) 06/16/21 10:45 Total Protein 7.8 g/dL (6.7-8.2) 06/16/21 10:45 Albumin 3.3 g/dL (3.2-5.5) 06/16/21 10:45 Globulin 4.5 g/dL (2.1-4.2) H 06/16/21 10:45 Albumin/Globulin Ratio 0.7 (1.0-2.2) L 06/16/21 10:45 25-OH Vitamin D Total 51 ng/mL (30-100) 06/18/21 14:54 Urine Color DARK YELLOW 06/16/21 11:21 Urine Clarity CLEAR (CLEAR) 06/16/21 11:21 Urine pH 6.0 PH (5.0-7.5) 06/16/21 11:21 Ur Specific [place] 1.025 (1.002-1.030) 06/16/21 11:21 Urine Protein 30 mg/dL (NEGATIVE) H 06/16/21 11:21 Urine Glucose (UA) NEGATIVE mg/dL (NEGATIVE) 06/16/21 11:21 Urine Ketones NEGATIVE mg/dL (NEGATIVE) 06/16/21 11:21 Urine Occult Blood TRACE-INTA (NEGATIVE) 06/16/21 11:21 Urine Nitrite NEGATIVE (NEGATIVE) 06/16/21 11:21 Urine Bilirubin NEGATIVE (NEGATIVE) 06/16/21 11:21 Urine Urobilinogen 0.2 (NORMAL) E.U./dL (NORMAL) 06/16/21 11:21 Ur Leukocyte Esterase NEGATIVE (NEGATIVE) 06/16/21 11:21 Urine RBC 0-5 /HPF (0-5) 06/16/21 11:21 Urine WBC 0-3 /HPF (0-5) 06/16/21 11:21 Ur Squamous Epith Cells RARE Squamous (<= Few) 06/16/21 11:21 Amorphous Sediment Few /LPF 06/16/21 11:21 Urine Bacteria Few /HPF (None Seen) 06/16/21 11:21 Urine Casts 0-2 Hyaline Casts /LPF 06/16/21 11:21 Urine Mucus Few Strands 06/16/21 11:21 Urine Culture Comments NOT INDICATED 06/16/21 11:21 Nasal Adenovirus (PCR) NOT DETECTED 06/16/21 10:46 Nasal B. parapertussis DNA (PCR) NOT DETECTED 06/16/21 10:46 Nasal Coronavir 229E PCR NOT DETECTED 06/16/21 10:46 Nasal Coronavir HKU1 PCR NOT DETECTED 06/16/21 10:46 Nasal Coronavir NL63 PCR NOT DETECTED 06/16/21 10:46 Nasal Coronavir OC43 PCR NOT DETECTED 06/16/21 10:46 Nasal Enterovir/Rhinovir PCR NOT DETECTED 06/16/21 10:46 Nasal Influenza B PCR NOT DETECTED 06/16/21 10:46 Nasal Influenza A PCR NOT DETECTED 06/16/21 10:46 Nasal Parainfluen 1 PCR NOT DETECTED 06/16/21 10:46 Nasal Parainfluen 2 PCR NOT DETECTED 06/16/21 10:46 Nasal Parainfluen 3 PCR NOT DETECTED 06/16/21 10:46 Nasal Parainfluen 4 PCR NOT DETECTED 06/16/21 10:46 Nasal RSV (PCR) NOT DETECTED 06/16/21 10:46 Nasal Screen MRSA (PCR) NEGATIVE (NEGATIVE) 06/16/21 15:00 Nasal B.pertussis DNA PCR NOT DETECTED 06/16/21 10:46 Nasal C.pneumoniae (PCR) NOT DETECTED 06/16/21 10:46 [place] Human Metapneumo PCR NOT DETECTED 06/16/21 10:46 Nasal M.pneumoniae (PCR) NOT DETECTED 06/16/21 10:46 Nasal SARS-CoV-2 (PCR) DETECTED A 06/16/21 10:46 ABX Reporting Has patient been on IV antibiotics over the past 48 hours?: No Current Medications - Current Medications Current Medications: Active Medications Acetaminophen (Acetaminophen 325 Mg Tablet) 650 mg PO Q4HR PRN PRN Reason: Pain 1 to 4 Last Admin: 06/24/21 22:03 Dose: 650 mg Documented by: Benzonatate (Benzonatate 100 Mg Capsule) 100 mg PO TID PRN PRN Reason: Cough Last Admin: 06/18/21 09:24 Dose: 100 mg Documented by: Carboxymethylcellulose (Carboxymethylcellulose Ophth Drops) 1 drops EACHEYE Q4HR PRN PRN Reason: Dry Eye Cholecalciferol (Cholecalciferol 25 Mcg Tablet) 50 mcg PO DAILY STONEY Last Admin: 06/25/21 08:49 Dose: 50 mcg Documented by: Dexamethasone (Dexamethasone 4 Mg/Ml Vial) 6 mg IVP DAILY [facility] Last Admin: 06/24/21 08:23 Dose: 6 mg Documented by: Enoxaparin Sodium (Enoxaparin 40 Mg/0.4 Ml Syringe) 40 mg SUBQ DAILY [facility] Last Admin: 06/25/21 08:49 Dose: 40 mg Documented by: Guaifenesin (Guaifenesin 600 Mg Tablet) 600 mg PO BID [facility] Last Admin: 06/25/21 08:49 Dose: 600 mg Documented by: Potassium Chloride/Sodium Chloride (Normal Saline 0.9% W/20 Meq Kcl) 1,000 mls @ 60 mls/hr IV .[id number] [facility] Last Infusion: 06/25/21 08:45 Dose: Infused Documented by: Loperamide HCl (Loperamide 2 Mg Capsule) 2 mg PO QID PRN PRN Reason: Diarrhea Ondansetron HCl (Ondansetron Odt 4 Mg Tablet) 4 mg TL Q6HR PRN PRN Reason: Nausea / Vomiting Last Admin: 06/21/21 11:22 Dose: 4 mg Documented by: Saccharomyces Boulardii (Saccharomyces Boulardii 250 Mg Capsule) 250 mg PO BIDWM [facility] Last Admin: 06/25/21 08:49 Dose: 250 mg Documented by: Sodium Chloride (Sodium Chloride Flush 0.9% 10 Ml Syringe) 10 ml IVP PRN PRN PRN Reason: NEEDED PER PROVIDER ORDERS Sodium Chloride (Sodium Chloride Flush 0.9% 10 Ml Syringe) 10 ml IVP 0100,0900,1700 [facility] Last Admin: 06/25/21 00:59 Dose: Not Given Documented by: Temazepam (Temazepam 15 Mg Capsule) 15 mg PO QPM PRN PRN Reason: Insomnia Last Admin: 06/24/21 22:03 Dose: 15 mg Documented by: Throat Lozenges (Benzocaine/Menthol Lozenge) 1 lozenge MM Q2HR PRN PRN Reason: Throat pain Last Admin: 06/25/21 10:20 Dose: 1 lozenge Documented by: No Known Home Medications 06/16/21
[2021-06-25] MEDS: DEXAMETHASONE 4 MG/ML VIAL IVP SCH (11:58)
[2021-06-25] MEDS: ACETAMINOPHEN 325 MG TABLET PO PRN (11:58)
[2021-06-25] MEDS: NS W/20 MEQ KCL 1,000 ML IV SCH (12:03)
[2021-06-26] MEDS: TEMAZEPAM 15 MG CAPSULE PO PRN ×2 (00:36→22:54)
[2021-06-26] MEDS: NS W/20 MEQ KCL 1,000 ML IV SCH ×2 (00:43→17:37)
[2021-06-26] MEDS: SODIUM CHLORIDE FLUSH 0.9% 10 ML SYRINGE IVP SCH ×3 (02:03→17:38)
[2021-06-26 05:13] LABS: BASOPHILS % (AUTO) 0.1 %; EOSINOPHILS # (AUTO) 0.1 10^3/uL (0.0-0.7); EOSINOPHILS % (AUTO) 0.9 %; HCT - HEMATOCRIT 28.5 % (37.0-47.0); HGB - HEMOGLOBIN 9.5 g/dL (12.0-16.0); LYMPHOCYTES # (AUTO) 0.9 10^3/uL (1.5-3.5); LYMPHOCYTES % (AUTO) 11.7 %; MEAN CORPUSCULAR HEMOGLOBIN 27.4 pg (27.0-31.0); MEAN CORPUSCULAR HGB CONC 33.3 g/dL (32.0-36.0); MEAN CORPUSCULAR VOLUME 82.1 fL (81.0-99.0); MEAN PLATELET VOLUME 10.3 fL (7.9-10.8); MONOCYTES # (AUTO) 0.4 10^3/uL (0.0-1.0); MONOCYTES % (AUTO) 4.5 %; NEUTROPHILS # (AUTO) 6.5 10^3/uL (1.5-6.6); NEUTROPHILS % (AUTO) 81.3 %; PLT - PLATELET COUNT 180 10^3/uL (130-450); RED BLOOD COUNT 3.47 10^6/uL (4.20-5.40); RED CELL DISTRIBUTION WIDTH 14.7 % (12.0-15.0)
[2021-06-26 05:20] LABS: CALCIUM 7.9 mg/dL (8.5-10.3); CREATININE 0.4 mg/dL (0.4-1.0); POTASSIUM 3.9 mmol/L (3.5-5.0)
[2021-06-26] MEDS: CHOLECALCIFEROL 25 MCG TABLET PO SCH (08:27)
[2021-06-26] MEDS: ENOXAPARIN 40 MG/0.4 ML SYRINGE SUBQ SCH (08:27)
[2021-06-26] MEDS: guaiFENesin 600 MG TABLET PO SCH ×2 (08:27→20:08)
[2021-06-26] MEDS: DEXAMETHASONE 4 MG/ML VIAL IVP SCH (08:27)
[2021-06-26] MEDS: SACCHAROMYCES BOULARDII 250 MG CAPSULE PO SCH ×2 (08:27→17:37)
--- NOTE | 2021-06-26 13:09 | PROVIDER PROGRESS NOTE ---
Assessment/Plan - Problem List (1) Acute respiratory failure with hypoxia Assessment/Plan: 06/26 Patient feels much improved. She had 96% oxygen saturation on 2 L of oxygen. She hope she does not need oxygen when she is discharged. We will continue finish Decadron, continue supplemental oxygen as needed, Continue vital signs closely monitoring, continue monitor patient's respiratory status 06/25 improved. Patient had a 95% oxygen saturation on 5 L oxygen by nasal continue. Patient does not require high flow of oxygen. Patient does not show acute respiratory distress. Patient already finished remdesivir. We will continue supplemental oxygen as needed, continue finish Decatron. (2) Pneumonia due to COVID-19 virus Assessment/Plan: 06/26 improved. She had 96% oxygen saturation on 2 L of oxygen. Patient has no acute respiratory distress. We will continue treated for COVID-19 pneumonia, Continue supplemental oxygen as needed improved. Patient had a 95% oxygen saturation on 5 L oxygen by nasal continue. Patient does not require high flow of oxygen. Patient does not show acute respiratory distress. Continue with suppl O2, IS, proning, Mucinex, 5 day course of Remdesivir was completed, and 10 day course of Decadron ordered and continue contact isolation. 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 - Current Meds Current Meds: Current Medications Generic Name Dose Route Start Last Admin Trade Name Freq PRN Reason Stop Dose Admin Acetaminophen 650 mg 06/16/21 12:58 06/25/21 11:58 Acetaminophen 325 Mg Tablet PO 650 mg Q4HR PRN Administration Pain 1 to 4 Benzonatate 100 mg 06/16/21 16:24 06/18/21 09:24 Benzonatate 100 Mg Capsule PO 100 mg TID PRN Administration Cough Cholecalciferol 50 mcg 06/19/21 09:00 06/26/21 08:27 Cholecalciferol 25 Mcg Tablet PO 50 mcg DAILY STONEY Administration Dexamethasone 6 mg 06/16/21 14:00 06/26/21 08:27 Dexamethasone 4 Mg/Ml Vial IVP 6 mg DAILY STONEY Administration Enoxaparin Sodium 40 mg 06/17/21 09:00 06/26/21 08:27 Enoxaparin 40 Mg/0.4 Ml Syringe SUBQ 40 mg DAILY STONEY Administration Guaifenesin 600 mg 06/16/21 21:00 06/26/21 08:27 Guaifenesin 600 Mg Tablet PO 600 mg BID STONEY Administration Potassium Chloride/Sodium Chloride 1,000 mls @ 60 mls/hr 06/21/21 09:00 06/26/21 06:38 Normal Saline 0.9% W/20 Meq Kcl IV 60 mls/hr .[id number] STONEY Infusion Ondansetron HCl 4 mg 06/16/21 12:58 06/21/21 11:22 Ondansetron Odt 4 Mg Tablet TL 4 mg Q6HR PRN Administration Nausea / Vomiting Saccharomyces Boulardii 250 mg 06/18/21 17:00 06/26/21 08:27 Saccharomyces Boulardii 250 Mg Capsule PO 250 mg BIDWM STONEY Administration Sodium Chloride 10 ml 06/16/21 17:00 06/26/21 08:28 Sodium Chloride Flush 0.9% 10 Ml Syringe IVP 10 ml 0100,0900,1700 STONEY Administration Temazepam 15 mg 06/20/21 21:38 06/26/21 00:36 Temazepam 15 Mg Capsule PO 15 mg QPM PRN Administration Insomnia Throat Lozenges 1 lozenge 06/23/21 08:23 06/25/21 10:20 Benzocaine/Menthol Lozenge MM 1 lozenge Q2HR PRN Administration Throat pain - Lab Result Fish Bone Diagrams: 06/26/21 05:02 06/26/21 05:02 - Additional Planning My Orders: My Active Orders 06/26/21 13:04 FERRITIN [IAI] Routine IRON TIBC PANEL [CHEM] Routine LDH - LACTATE DEHYDROGENASE [CHEM] Routine RETIC [HEME] Routine VITAMIN B12 [IAI] Routine 06/27/21 05:00 BMP - BASIC METABOLIC PANEL [CHEM] DAILYLAB CBC - COMP BLD CT W/AUTO DIFF [HEME] DAILYLAB 06/28/21 05:00 BMP - BASIC METABOLIC PANEL [CHEM] DAILYLAB CBC - COMP BLD CT W/AUTO DIFF [HEME] DAILYLAB 06/29/21 05:00 BMP - BASIC METABOLIC PANEL [CHEM] DAILYLAB CBC - COMP BLD CT W/AUTO DIFF [HEME] DAILYLAB 06/30/21 05:00 BMP - BASIC METABOLIC PANEL [CHEM] DAILYLAB CBC - COMP BLD CT W/AUTO DIFF [HEME] DAILYLAB Subjective - Subjective Patient Reports: Feeling Better, Resting Comfortably Objective Vital Signs: Vital Signs - 24 hr 06/25/21 06/25/21 06/25/21 13:29 13:30 15:52 Temperature 36.7 C Heart Rate [ 101 H 93 91 Monitoring electrodes] Respiratory 23 Rate Blood Pressure 92/58 L [Right Brachial artery] O2 Saturation 89 L 93 94 06/25/21 06/25/21 06/26/21 20:28 23:56 05:00 Temperature 37 C 36.6 C Heart Rate [ 70 63 108 H Monitoring electrodes] Respiratory 25 H 28 H 28 H Rate Blood Pressure 94/60 118/70 109/65 [Right Brachial artery] O2 Saturation 95 92 94 06/26/21 06/26/21 07:50 12:30 Temperature 36.7 C 36.8 C Heart Rate [ 73 72 Monitoring electrodes] Respiratory 23 22 Rate Blood Pressure 110/71 103/75 [Right Brachial artery] O2 Saturation 93 96 Oxygen O2 Source Nasal cannula I&O (Last 24 Hrs): Intake and Output Totals x24h 06/24/21 06/25/21 06/26/21 23:59 23:59 23:59 Intake Total 3909 3757 2583 Output Total 2650 Balance 1259 3757 2583 General: Alert, Oriented x3, Cooperative, No acute distress HEENT: Atraumatic Neck: Supple Lymphatic: no adenopathy Neuro: Alert, Non Focal, Oriented Times 3 Cardiovascular: Regular rate, Normal S1, Normal S2 Respiratory: Chest non-tender, No respiratory distress Abdomen: Normal bowel sounds, Soft Extremities: Normal pulses - Results Results: Laboratory Results WBC 8.0 x10^3/uL (4.8-10.8) 06/26/21 05:02 RBC 3.47 10^6/uL (4.20-5.40) L 06/26/21 05:02 Hgb 9.5 g/dL (12.0-16.0) L 06/26/21 05:02 Hct 28.5 % (37.0-47.0) L 06/26/21 05:02 MCV 82.1 fL (81.0-99.0) 06/26/21 05:02 MCH 27.4 pg (27.0-31.0) 06/26/21 05:02 MCHC 33.3 g/dL (32.0-36.0) 06/26/21 05:02 RDW 14.7 % (12.0-15.0) 06/26/21 05:02 Plt Count 180 10^3/uL (130-450) 06/26/21 05:02 MPV 10.3 fL (7.9-10.8) 06/26/21 05:02 Neut # (Auto) 6.5 10^3/uL (1.5-6.6) 06/26/21 05:02 Lymph # (Auto) 0.9 10^3/uL (1.5-3.5) L 06/26/21 05:02 Phillips # (Auto) 0.4 10^3/uL (0.0-1.0) 06/26/21 05:02 Eos # (Auto) 0.1 10^3/uL (0.0-0.7) 06/26/21 05:02 Baso # (Auto) 0.0 10^3/uL (0.0-0.1) 06/26/21 05:02 Absolute Nucleated RBC 0.00 x10^3/uL 06/26/21 05:02 Nucleated RBC % 0.0 /100WBC 06/26/21 05:02 Sodium 134 mmol/L (135-145) L 06/26/21 05:02 Potassium 3.9 mmol/L (3.5-5.0) 06/26/21 05:02 Chloride 102 mmol/L (101-111) 06/26/21 05:02 Carbon Dioxide 24 mmol/L (21-32) 06/26/21 05:02 Anion Gap 8.0 (6-13) 06/26/21 05:02 BUN 11 mg/dL (6-20) 06/26/21 05:02 Creatinine 0.4 mg/dL (0.4-1.0) 06/26/21 05:02 Estimated GFR (MDRD) 163 (>89) 06/26/21 05:02 Glucose 100 mg/dL (70-100) 06/26/21 05:02 POC Whole Bld Glucose 96 mg/dL (70 - 100) 06/21/21 08:09 Lactic Acid 1.5 mmol/L (0.5-2.2) 06/16/21 10:53 Calcium 7.9 mg/dL (8.5-10.3) L 06/26/21 05:02 Magnesium 2.1 mg/dL (1.7-2.8) 06/23/21 04:27 Total Bilirubin 0.6 mg/dL (0.2-1.0) 06/16/21 10:45 AST 47 IU/L (10-42) H 06/16/21 10:45 ALT 16 IU/L (10-60) 06/16/21 10:45 Alkaline Phosphatase 53 IU/L (42-121) 06/16/21 10:45 Total Protein 7.8 g/dL (6.7-8.2) 06/16/21 10:45 Albumin 3.3 g/dL (3.2-5.5) 06/16/21 10:45 Globulin 4.5 g/dL (2.1-4.2) H 06/16/21 10:45 Albumin/Globulin Ratio 0.7 (1.0-2.2) L 06/16/21 10:45 25-OH Vitamin D Total 51 ng/mL (30-100) 06/18/21 14:54 Urine Color DARK YELLOW 06/16/21 11:21 Urine Clarity CLEAR (CLEAR) 06/16/21 11:21 Urine pH 6.0 PH (5.0-7.5) 06/16/21 11:21 Ur Specific [place] 1.025 (1.002-1.030) 06/16/21 11:21 Urine Protein 30 mg/dL (NEGATIVE) H 06/16/21 11:21 Urine Glucose (UA) NEGATIVE mg/dL (NEGATIVE) 06/16/21 11: Urine Ketones NEGATIVE mg/dL (NEGATIVE) 06/16/21 11:21 Urine Occult Blood TRACE-INTA (NEGATIVE) 06/16/21 11:21 Urine Nitrite NEGATIVE (NEGATIVE) 06/16/21 11:21 Urine Bilirubin NEGATIVE (NEGATIVE) 06/16/21 11:21 Urine Urobilinogen 0.2 (NORMAL) E.U./dL (NORMAL) 06/16/21 11:21 Ur Leukocyte Esterase NEGATIVE (NEGATIVE) 06/16/21 11:21 Urine RBC 0-5 /HPF (0-5) 06/16/21 11:21 Urine WBC 0-3 /HPF (0-5) 06/16/21 11:21 Ur Squamous Epith Cells RARE Squamous (<= Few) 06/16/21 11:21 Amorphous Sediment Few /LPF 06/16/21 11:21 Urine Bacteria Few /HPF (None Seen) 06/16/21 11:21 Urine Casts 0-2 Hyaline Casts /LPF 06/16/21 11:21 Urine Mucus Few Strands 06/16/21 11:21 Urine Culture Comments NOT INDICATED 06/16/21 11:21 Nasal Adenovirus (PCR) NOT DETECTED 06/16/21 10:46 Nasal B. parapertussis DNA (PCR) NOT DETECTED 06/16/21 10:46 Nasal Coronavir 229E PCR NOT DETECTED 06/16/21 10:46 Nasal Coronavir HKU1 PCR NOT DETECTED 06/16/21 10:46 Nasal Coronavir NL63 PCR NOT DETECTED 06/16/21 10:46 Nasal Coronavir OC43 PCR NOT DETECTED 06/16/21 10:46 Nasal Enterovir/Rhinovir PCR NOT DETECTED 06/16/21 10:46 Nasal Influenza B PCR NOT DETECTED 06/16/21 10:46 Nasal Influenza A PCR NOT DETECTED 06/16/21 10:46 Nasal Parainfluen 1 PCR NOT DETECTED 06/16/21 10:46 Nasal Parainfluen 2 PCR NOT DETECTED 06/16/21 10:46 Nasal Parainfluen 3 PCR NOT DETECTED 06/16/21 10:46 Nasal Parainfluen 4 PCR NOT DETECTED 06/16/21 10:46 Nasal RSV (PCR) NOT DETECTED 06/16/21 10:46 Nasal Screen MRSA (PCR) NEGATIVE (NEGATIVE) 06/16/21 15:00 Nasal B.pertussis DNA PCR NOT DETECTED 06/16/21 10:46 Nasal C.pneumoniae (PCR) NOT DETECTED 06/16/21 10:46 Maxwell Human Metapneumo PCR NOT DETECTED 06/16/21 10:46 Nasal M.pneumoniae (PCR) NOT DETECTED 06/16/21 10:46 Nasal SARS-CoV-2 (PCR) DETECTED A 06/16/21 10:46 ABX Reporting Has patient been on IV antibiotics over the past 48 hours?: No Current Medications - Current Medications Current Medications: Active Medications Acetaminophen (Acetaminophen 325 Mg Tablet) 650 mg PO Q4HR PRN PRN Reason: Pain 1 to 4 Last Admin: 06/25/21 11:58 Dose: 650 mg Documented by: Benzonatate (Benzonatate 100 Mg Capsule) 100 mg PO TID PRN PRN Reason: Cough Last Admin: 06/18/21 09:24 Dose: 100 mg Documented by: Carboxymethylcellulose (Carboxymethylcellulose Ophth Drops) 1 drops EACHEYE Q4HR PRN PRN Reason: Dry Eye Cholecalciferol (Cholecalciferol 25 Mcg Tablet) 50 mcg PO DAILY [facility] Last Admin: 06/26/21 08:27 Dose: 50 mcg Documented by: Dexamethasone (Dexamethasone 4 Mg/Ml Vial) 6 mg IVP DAILY [facility] Last Admin: 06/26/21 08:27 Dose: 6 mg Documented by: Enoxaparin Sodium (Enoxaparin 40 Mg/0.4 Ml Syringe) 40 mg SUBQ DAILY [facility] Last Admin: 06/26/21 08:27 Dose: 40 mg Documented by: Guaifenesin (Guaifenesin 600 Mg Tablet) 600 mg PO BID [facility] Last Admin: 06/26/21 08:27 Dose: 600 mg Documented by: Potassium Chloride/Sodium Chloride (Normal Saline 0.9% W/20 Meq Kcl) 1,000 mls @ 60 mls/hr IV .[id number] [facility] Last Infusion: 06/26/21 06:38 Dose: 60 mls/hr Documented by: Loperamide HCl (Loperamide 2 Mg Capsule) 2 mg PO QID PRN PRN Reason: Diarrhea Ondansetron HCl (Ondansetron Odt 4 Mg Tablet) 4 mg TL Q6HR PRN PRN Reason: Nausea / Vomiting Last Admin: 06/21/21 11:22 Dose: 4 mg Documented by: Saccharomyces Boulardii (Saccharomyces Boulardii 250 Mg Capsule) 250 mg PO BIDWM [facility] Last Admin: 06/26/21 08:27 Dose: 250 mg Documented by: Sodium Chloride (Sodium Chloride Flush 0.9% 10 Ml Syringe) 10 ml IVP PRN PRN PRN Reason: NEEDED PER PROVIDER ORDERS Sodium Chloride (Sodium Chloride Flush 0.9% 10 Ml Syringe) 10 ml IVP 0100,0900,1700 STONEY Last Admin: 06/26/21 08:28 Dose: 10 ml Documented by: Temazepam (Temazepam 15 Mg Capsule) 15 mg PO QPM PRN PRN Reason: Insomnia Last Admin: 06/26/21 00:36 Dose: 15 mg Documented by: Throat Lozenges (Benzocaine/Menthol Lozenge) 1 lozenge MM Q2HR PRN PRN Reason: Throat pain Last Admin: 06/25/21 10:20 Dose: 1 lozenge Documented by: No Known Home Medications 06/16/21
[2021-06-26 13:50] LABS: ABSOLUTE RETICS # AUTO 0.079 10^6/uL (0.020-0.110); RETICULOCYTE COUNT % (AUTO) 1.98 % (0.5-2.3)
[2021-06-26 14:05] LABS: % IRON SATURATION 8 % (20-50); IRON 18 ug/dL (28-170); TOTAL IRON BINDING CAPACITY 221 ug/dL (250-450); TRANSFERRIN 158 mg/dL (192-382)
[2021-06-26 14:19] LABS: FERRITIN 81.2 ng/mL (11.0-306.8)
[2021-06-26] MEDS: FERROUS GLUCONATE 324 MG TABLET PO SCH (17:37)
[2021-06-26] MEDS: ACETAMINOPHEN 325 MG TABLET PO PRN (22:53)
[2021-06-27] MEDS: SODIUM CHLORIDE FLUSH 0.9% 10 ML SYRINGE IVP SCH ×2 (01:20→08:52)
[2021-06-27 04:51] LABS: CREATININE 0.4 mg/dL (0.4-1.0); POTASSIUM 3.9 mmol/L (3.5-5.0)
[2021-06-27 07:14] LABS: BASOPHILS % (AUTO) 0.1 %; EOSINOPHILS # (AUTO) 0.1 10^3/uL (0.0-0.7); EOSINOPHILS % (AUTO) 1.4 %; HCT - HEMATOCRIT 31.2 % (37.0-47.0); HGB - HEMOGLOBIN 10.4 g/dL (12.0-16.0); LYMPHOCYTES # (AUTO) 1.4 10^3/uL (1.5-3.5); LYMPHOCYTES % (AUTO) 13.2 %; MEAN CORPUSCULAR HGB CONC 33.3 g/dL (32.0-36.0); MEAN CORPUSCULAR VOLUME 83.9 fL (81.0-99.0); MEAN PLATELET VOLUME 10.1 fL (7.9-10.8); MONOCYTES # (AUTO) 0.6 10^3/uL (0.0-1.0); MONOCYTES % (AUTO) 5.5 %; NEUTROPHILS # (AUTO) 7.9 10^3/uL (1.5-6.6); NEUTROPHILS % (AUTO) 77.9 %; PLT - PLATELET COUNT 239 10^3/uL (130-450); RED BLOOD COUNT 3.72 10^6/uL (4.20-5.40); RED CELL DISTRIBUTION WIDTH 15.1 % (12.0-15.0); WHITE BLOOD COUNT 10.2 x10^3/uL (4.8-10.8)
[2021-06-27] MEDS: ENOXAPARIN 40 MG/0.4 ML SYRINGE SUBQ SCH (08:52)
[2021-06-27] MEDS: guaiFENesin 600 MG TABLET PO SCH (08:52)
[2021-06-27] MEDS: FERROUS GLUCONATE 324 MG TABLET PO SCH (08:52)
[2021-06-27] MEDS: SACCHAROMYCES BOULARDII 250 MG CAPSULE PO SCH (08:52)
[2021-06-27] MEDS: CHOLECALCIFEROL 25 MCG TABLET PO SCH (08:52)
[2021-06-27] MEDS: DEXAMETHASONE 4 MG/ML VIAL IVP SCH (08:53)
--- NOTE | 2021-06-27 11:05 | Discharge Plan ---
Discharge Plan Problem Reviewed?: Yes Disposition: Home, Self Care Condition: Stable Prescriptions: Ferrous Gluconate [Fergon] 324 mg PO DAILYWM #30 tablet Temazepam [Restoril] 15 mg PO QPM PRN #15 cap PRN Reason: Insomnia Benzonatate [Tessalon] 100 mg PO TID PRN #15 cap PRN Reason: Cough Cholecalciferol [Vitamin D3] 50 mcg PO DAILY #30 tablet Diet: Regular Activity Restrictions: Activity as Tolerated Shower Restrictions: No (fall precaution) Instruction Topics: Benzonatate capsules, Temazepam tablets or capsules, COVID- 19 [facility], COVID-19 Located Within [facility] Department Statement Health Concerns: Covid 19 infection Plan of Treatment: You were found to have Covid 19 infection. After treatment, you are improved. Now you feel comfortable without Oxygen at room air on rest, but you still need 4 liter of Oxygen by nasal cannula on exertion. You really want to be discharged to home on today. Please closely monitor your O2 level at home, followup with respiratory therapist instruction for safely use O2 in the home, and followup with [facility] Covid 19 recommendation. Should your symptoms return or worsen, you feel more shortness of breath, O2 saturation drop, not limited to, you may present to ER or call 911 for help. Care Goals: Stabilization and improvement of your medical conditions Assessment: Discussed in detail the care plan with you, answered your questions, you verbally stated you understood Additional Instructions or Follow Up instructions: You may follow-up with your PCP in 1 to 2 weeks, should your symptoms return or worsen, you may present to ER or call 911 for help No Smoking: If you smoke, Please STOP! Call for help.
--- NOTE | 2021-06-27 11:28 | DISCHARGE SUMMARY ---
Discharge Summary Admit Date: 06/16/21 Discharge Date: 06/27/21 Discharging Provider: Mark Zuniga Condition at Discharge: Stable Discharge Disposition: 01 Home, Self Care Discharge Facility Name: home - DIAGNOSES Discharge Diagnoses with Status of Each Condition: (1) Acute respiratory failure with hypoxia stable and improved. Patient was found to have Covid 19 pneumonia infection. After treated in the hospital, Patient feel comfortable without need of O2 supplement at rest on room air, her oxygen saturation is 94%. With exertion on room air, his oxygen saturation was 75%. On 2 LPM of O2 with exertion, her oxygen saturation was 85%. on 3 LPM, her oxygen saturation was 88%, and on 4 LPM, her oxygen saturation improved to 91%. I am ordering home oxygen 4lpm by ID for her exertion to treat her COVID-19 pneumonia resulting hypoxemia. She was clearly advised if her symptoms return or worsen, she feel more shortness of breath, O2 saturation drop, but not limited to, she may present to ER or call 911 for help. Pt really want to be discharged to home. pt had O2 desat study at hospital before d/c. She had extensive education for how to monitor her respiratory status. she had extensive education for her home O2 safely usage as well. (2) Pneumonia due to COVID-19 virus stable and improved as the above. (3) Hyponatremia resolved (4) Hypoglycemia Resolved (5) Prerenal azotemia resolved (6) Enteritis resolved. - HPI History of Present Illness: refer from Dr. Sanderson's HPI on 06/16/21 This is a 60-year-old female with no significant past medical history who presents today complaining of generalized malaise. She states she has had nasal congestion and a cough as well as chills for about the past week. Over the past few days this has progressed and she has felt more nauseous and has had vomiting and diarrhea. She has had a poor appetite and just feels generally weak overall. No focal deficits. No abdominal pain. She is not vaccinated against COVID-19. She reports no dysuria, urgency, hematuria. She reports being quite healthy and takes no medications at home. She is a non-smoker and does not drink alcohol. She did report feeling dizzy nightly this morning but this has since resolved. She states her blood pressure is normally on the lower side. In the emergency department, she was noted be hypoxic saturating in the mid 80s on room air. This improved to the high 90s with 2 L of oxygen via nasal cannula. Imaging suggested pneumonia. She was initially hypotensive with systolics in the 90s but this is stable. Given this, medicine was consulted for admission. We discussed goals of care and she would like to be a full code. - HOSPITAL COURSE Hospital Course: pt was admitted for generalized malaise, nasal congestion, cough as well as chills, hypoxia at room air and Covid 19 infection. Patient finished COVID-19 treatment course including Remdesivir, Decadron, Lovenox. Patient was initially required to have high flow of oxygen in the treatment course In the hospital. Patient's symptoms was gradually improved. pt had O2 desat study on today. pt feel comfortable without respiratory distress on room air at rest but pt require home 4lpm of O2 supplement on exertion. Patient really wanted to be discharged to home on today. - ALLERGIES Allergies/Adverse Reactions: Allergies Allergy/AdvReac Type Severity Reaction Status Date / Time No Known Drug Allergies Allergy Verified 06/16/21 10:29 - MEDICATIONS Home Medications: Ambulatory Orders Medication Instructions Recorded Confirmed Benzonatate [Tessalon] 100 mg PO TID PRN #15 cap 06/27/21 Cholecalciferol [Vitamin D3] 50 mcg PO DAILY #30 tablet 06/27/21 Ferrous Gluconate [Fergon] 324 mg PO DAILYWM #30 tablet 06/27/21 Temazepam [Restoril] 15 mg PO QPM PRN #15 cap 06/27/21 - PHYSICAL EXAM AT DISCHARGE General Appearance: positive: No acute distress, Alert. negative: Lethargic Eyes Bilateral: positive: Normal inspection, No lid inflammation ENT: positive: ENT inspection nml, No signs of dehydration. negative: Purulent nasal drainage Neck: positive: Nml inspection, Trachea midline. negative: Tracheal deviation Respiratory: positive: Chest non-tender, No respiratory distress Cardiovascular: positive: Regular rate & rhythm. negative: Tachycardia, Bradycardia, Systolic murmur Peripheral Pulses: positive: 2+ Abdomen: positive: Non-tender, Nml bowel sounds, No distention Back: positive: Nml inspection Skin: positive: Color nml, Warm, Dry. negative: Cyanosis Extremities: positive: Non-tender, Full ROM, Nml appearance Neurologic/Psychiatric: positive: Oriented x3, Motor nml, Sensation nml, Mood/affect nml. negative: Weakness, Sensory loss, Facial droop, Slurred/abnml speech, Depressed mood/affect - LABS Result Diagrams: 06/27/21 06:46 06/27/21 04:26 - FOLLOW UP Follow Up: You were found to have Covid 19 infection. After treatment, you are improved. Now you feel comfortable without need of Oxygen supplement at room air on rest, but you still need 4 liter of Oxygen by nasal cannula on exertion. You really want to be discharged to home on today. Please closely monitor your O2 level at home, followup with respiratory therapist instruction for safely use O2 in the home, and followup with [facility] Covid 19 recommendation. Should your symptoms return or worsen, you feel more shortness of breath, O2 saturation drop, but not limited to, you may present to ER or call 911 for help. You may follow-up with your PCP in 1 to 2 weeks, should your symptoms return or worsen, you may present to ER or call 911 for help - TIME SPENT Time Spent in Discharge (Minutes): 30
[2021-06-27 11:46] VITALS: BP 96/62
[2021-06-27] MEDS: ACETAMINOPHEN 325 MG TABLET PO PRN (11:51)
== END 2021-06-27 13:59 | disposition home or self-care (01) | DRG 177 ==
LOC: ED 10:11 → ICU 12:58
PROVIDERS: ADMIT Internal Medicine; ATTEND Nurse Practitioner Gerontology
PROC: XW033E5 Introduction of Remdesivir Anti-infective into Peripheral Vein, Percutaneous Approach, New Technology Group 5 (ICD-10-PCS; principal; 2021-06-16)
PROC: 3E0333Z Introduction of Anti-inflammatory into Peripheral Vein, Percutaneous Approach (ICD-10-PCS; 2021-06-16)
DX: U07.1 COVID-19 (principal); J12.82 Pneumonia due to coronavirus disease 2019; J96.01 Acute respiratory failure with hypoxia; E87.1 Hypo-osmolality and hyponatremia; A08.39 Other viral enteritis; E16.2 Hypoglycemia, unspecified; K52.9 Noninfective gastroenteritis and colitis, unspecified
CPT/HCPCS: 0202U; 36415; 71045; 80048; 80053; 81001; 82306; 82607; 82728; 83540; 83605; 83615; 83735; 84466; 85025; 85045; 87040; 87640; 93005; 94761; 99283; 99285; A9270; J1650; J7120; Q0162; 87086